=== PATIENT | female | born 1990 | race Caucasian/White ===

== ENCOUNTER 2017-11-04 03:26 | Inpatient (IN) | payer OTHER ==
[~2017-11-04] VITALS: Ht 162.6 cm; Wt 92.7 kg
[2017-11-04 03:42] VITALS: BP 119/69; PULSE 107; RESP 16; TEMP 98.5; O2SAT 99
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
[2017-11-04] MEDS ORDERED: TETANUS/DIPHTHERIA TOXOID ADULT 0.5 ML VIAL IM ONE (04:45)
[2017-11-04] MEDS ORDERED: LIDOCAINE 2%/EPINEPHrine 1:100,000 20ML MDV NERV BLOCK ONE (04:45)
[2017-11-04 04:46] LABS: AUTOMATED NEUTROPHIL # 9.6 TH/MM3 (1.8-7.7); BASOPHIL # 0.1 TH/MM3 (0-0.2); BASOPHIL % 0.5 % (0.0-2.0); EOSINOPHIL % 0.2 % (0.0-4.0); HEMATOCRIT 37.6 % (35.0-46.0); HEMOGLOBIN 12.6 GM/DL (11.6-15.3); LYMPH % 17.5 % (9.0-44.0); LYMPHOCYTE # 2.2 TH/MM3 (1.0-4.8); MEAN CORPUSCULAR HEMOGLOBIN 25.1 PG (27.0-34.0); MEAN CORPUSCULAR HGB CONC 33.5 % (32.0-36.0); MEAN PLATELET VOLUME 7.7 FL (7.0-11.0); MONO % 5.1 % (0.0-8.0); MONOCYTE # 0.6 TH/MM3 (0-0.9); NEUT % 76.7 % (16.0-70.0); PLATELET COUNT 404 TH/MM3 (150-450); RED BLOOD COUNT 5.01 MIL/MM3 (4.00-5.30); RED CELL DISTRIBUTION WIDTH 16.3 % (11.6-17.2); WHITE BLOOD COUNT 12.5 TH/MM3 (4.0-11.0)
[2017-11-04 05:15] LABS: ALBUMIN 3.8 GM/DL (3.4-5.0); AST (GOT) 13 U/L (15-37); BICARBONATE 25.6 MEQ/L (21.0-32.0); BLOOD UREA NITROGEN 10 MG/DL (7-18); CHLORIDE 104 MEQ/L (98-107); CREATININE 0.73 MG/DL (0.50-1.00); GLOMERULAR FILTRATION RATE 96 ML/MIN (>89); GLUCOSE,RANDOM 92 MG/DL (74-106); MAGNESIUM 2.1 MG/DL (1.5-2.5); SODIUM (NA) 138 MEQ/L (136-145)
[2017-11-04 05:16] LABS: ALT (GPT) 18 U/L (10-53)
[2017-11-04 05:25] LABS: ACETAMINOPHEN LESS THAN 2.0 MCG/ML (10.0-30.0); ALKALINE PHOSPHATASE 92 U/L (45-117); TOTAL BILIRUBIN ADULT 0.4 MG/DL (0.2-1.0); TOTAL PROTEIN 7.9 GM/DL (6.4-8.2); TROPONIN I LESS THAN 0.02 NG/ML (0.02-0.05)
[2017-11-04 10:56] VITALS: BP 106/58; PULSE 82; RESP 16; TEMP 98.7; O2SAT 97
--- NOTE | 2017-11-04 12:58 | EKG ---
Date Performed: 11/04/2017 Time Performed: 04:36:54 PTAGE: 27 years EKG: Sinus rhythm NORMAL ECG NO PREVIOUS TRACING DOCTOR: Timi Ospina Interpretating Date/Time 11/04/2017 12:58:20
[2017-11-04 18:43] VITALS: BP 115/68; PULSE 78; RESP 18; O2SAT 97
[2017-11-04 22:04] VITALS: BP 119/64; PULSE 90; RESP 18; TEMP 98.1; O2SAT 99
[2017-11-05 07:05] VITALS: BP 109/70; PULSE 73; RESP 17; TEMP 97.7; O2SAT 100
[2017-11-05 11:09] VITALS: BP 104/67; PULSE 66; RESP 18; O2SAT 98
[2017-11-05] MEDS ORDERED: LORazepam 2 MG/ML VIAL IM PRN (14:15)
[2017-11-05] MEDS ORDERED: MAGNESIUM HYDROXIDE SUSP 30 ML CUP PO PRN (14:15)
[2017-11-05] MEDS ORDERED: ACETAMINOPHEN 325 MG TAB PO PRN (14:15)
[2017-11-05] MEDS ORDERED: LORazepam 1 MG TAB PO PRN (14:15)
[2017-11-05] MEDS ORDERED: ALUMINUM/MAGNESIUM/SIMETH 30 ML CUP PO PRN (14:15)
[2017-11-05 18:24] VITALS: BP 122/55; PULSE 75; RESP 18; TEMP 97.1; O2SAT 100
[2017-11-05] MEDS: REMOVE OLD NICOTINE PATCH T-DERMAL SCH (21:00)
[2017-11-06 05:00] VITALS: BP 130/77; PULSE 81; RESP 19; TEMP 97.7; O2SAT 97
[2017-11-06 06:28] LABS: BICARBONATE 28.2 MEQ/L (21.0-32.0); BLOOD UREA NITROGEN 8 MG/DL (7-18); CALCIUM 9.2 MG/DL (8.5-10.1); CHLORIDE 103 MEQ/L (98-107); CREATININE 0.65 MG/DL (0.50-1.00); GLOMERULAR FILTRATION RATE 110 ML/MIN (>89); GLUCOSE,RANDOM 90 MG/DL (74-106); SODIUM (NA) 138 MEQ/L (136-145)
[2017-11-06 06:29] LABS: CHOLESTEROL 111 MG/DL (120-200)
[2017-11-06 06:39] LABS: CHOLESTEROL/ HDL RATIO 3.39 RATIO; HDL CHOLESTEROL 32.7 MG/DL (40.0-60.0); LDL CHOLESTEROL 64 MG/DL (0-99); TRIGLYCERIDES 72 MG/DL (42-150)
[2017-11-06] MEDS: NICOTINE 21 MG/24 HR PATCH T-DERMAL SCH (09:00)
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
[2017-11-06] MEDS ORDERED: LORazepam 2 MG/ML VIAL IV PUSH PRN ×4 (12:30)
[2017-11-06] MEDS ORDERED: LORazepam 2 MG TAB PO PRN (12:30)
[2017-11-06] MEDS ORDERED: LORazepam 1 MG TAB PO PRN (12:30)
[2017-11-06] MEDS ORDERED: FLUMAZENIL 0.5 MG/5 ML VIAL IV PUSH PRN (12:30)
[2017-11-06 15:48] LABS: HEMOGLOBIN A1C 5.2 % (4.3-6.0)
[2017-11-06 18:00] VITALS: BP 111/63; PULSE 85; RESP 16; TEMP 98.1; O2SAT 99
[2017-11-06] MEDS ORDERED: PILL SPLITTER OTHER PRN (18:15)
[2017-11-06] MEDS: REMOVE OLD NICOTINE PATCH T-DERMAL SCH (20:41)
[2017-11-06] MEDS: VENLAFAXINE HCL 25 MG TAB PO SCH (21:16)
[2017-11-07 06:00] VITALS: BP 118/77; PULSE 65; RESP 14; TEMP 97.9; O2SAT 98
[2017-11-07] MEDS: NICOTINE 21 MG/24 HR PATCH T-DERMAL SCH (09:00)
[2017-11-07] MEDS: VENLAFAXINE HCL 25 MG TAB PO SCH ×2 (09:53→20:34)
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
--- NOTE | 2017-11-07 11:56 | PD.PSY.CON ---
Provisional Diagnosis Admission Date Nov 05, 2017 at 13:35 [place] I. Major depressive disorder severe with psychotic features [place] II. Unspecified personality disorder History of Present Illness Service Psychiatry Consult Requested By Psychiatry Reason for Consult Second opinion Primary Care Physician Unknown HPI Patient is a 27-year-old woman, single, no children, domicile with mother, a college, with an unclear past psychiatric history, unknown previous hospitalizations, suicide attempts or self-injurious behavior, with substance use history significant for alcohol use as per collateral information, no significant past medical history, who was brought in under [place] act after patient barricaded herself in a hotel room bathroom, was found to have to written notes on suicidal table, which patient refused to exit the bathroom and was found holding a knife and was tased she was admitted to the inpatient psychiatry unit for further evaluation and management. As per chart patient in the ED was noted to refuse to cooperate with interview but was noted to have a self-inflicted knife wound to the left side of her neck requiring sutures. Patient was found lying on hospital bed superficially cooperative, guarded. Patient was noted to be alert and oriented 3, was able to state that she came by ambulance but also mentioned that patient came by court order, specifically an ex-partake that was issued. Significant past medical, psychiatric or substance use history patient continues to state "I don't know" and refusing to elaborate or engage further in interview. Patient did admit to feeling depressed, with decreased appetite and energy with no difficulty concentration but denied any perceptual disturbances or delusions at this time. Patient continued to have limited engagement in interview and answered every question with "I don't know". Family psychiatric history: Unable to assess due to limited cooperation by patient during interview Psychiatric history:Unable to assess due to limited cooperation by patient during interview Substance use history:Unable to assess due to limited cooperation by patient during interview although as per collateral information patient had been drinking increasingly alcohol recently. Past medical history:Unable to assess due to limited cooperation by patient during interview Allergies: NKDA as per chart Social history: Single, no children, not currently employed, the domicile with mother Collateral contact: (Mother)[phone] Patient was seen today for psychiatric evaluation of a second opinion. I reviewed documentation. I discussed the case with nurse in charge. The patient was not cooperative, selectively mute, she did not answer anyone of my questions. I reassured the patient and let her know very clearly that she is in the psychiatric unit to be taking care to be help and wants she feels that she wants to talk we are open to listening to her help her. Presently the patient has been taking her medications, she has no reported any side effects. She also has been eating, sometimes she has been verbal very minimally. Review of Systems Psychiatric: COMPLAINS OF: Mood changes, Depression, Suicidal Ideation Except as stated in HPI: all other systems reviewed are Neg Past Family Social History Coded Allergies: No Known Allergies (Verified Allergy, Severe, 11/04/17) No Active Prescriptions or Reported Meds Current Medications Medications (Trade) Dose Ordered Sig/Caesar Route Start Time Stop Time Status Last Admin (Ativan) 1 mg Q6H PRN PO 11/05/17 14:15 (Ativan Inj) 1 mg Q6H PRN IM 11/05/17 14:15 (Tylenol) 650 mg Q4H PRN PO 11/05/17 14:15 (Milk Of Magnesia Liq) 30 ml DAILY PRN PO 11/05/17 14:15 (Mag-Al Plus Susp Liq) 30 ml Q6H PRN PO 11/05/17 14:15 (Habitrol 21 Mg Patch.24 Hr) 1 patch DAILY T-DERMAL 11/06/17 09:00 Miscellaneous Information 1 HS T-DERMAL 11/05/17 21:00 (Romazicon Inj) 0.2 mg Q1M PRN IV PUSH 11/06/17 12:30 (Ativan) 1 mg Q4H PRN PO 11/06/17 12:30 (Ativan Inj) 1 mg Q4H PRN IV PUSH 11/06/17 12:30 (Ativan) 2 mg Q2H PRN PO 11/06/17 12:30 (Ativan Inj) 2 mg Q2H PRN IV PUSH 11/06/17 12:30 (Ativan Inj) 2 mg Q1H PRN IV PUSH 11/06/17 12:30 (Ativan Inj) 2 mg Q15M PRN IV PUSH 11/06/17 12:30 (Effexor) 37.5 mg BID PO 11/06/17 21:00 11/07/17 09:53 (Pill Splitter) 1 ea UNSCH PRN OTHER 11/06/17 18:15 Physical Exam Vital Signs Vital Signs Date Time Temp Pulse Resp B/P (MAP) Pulse Ox O2 Delivery O2 Flow Rate FiO2 11/07/17 06:00 97.9 65 14 118/77 (91) 98 11/05/17 11:09 Room Air I/O 11/07/17 11/07/17 11/08/17 08:00 16:00 00:00 Intake Total 240 ml Balance 240 ml Mental Status Examination Appearance: Disheveled Consciousness: Alert Orientation: Person, Place, Date/Time Motor Activity: Normal gait Speech: Other (selectively mute) Language: Adequate Fund of Knowledge: Inadequate Memory: Impaired Mood: Sad Affect: Flat Thought Process & Associations: Other Thought Content: Other (concrete and unable to assess due to limitation of participation for patient) Hallucination Type: None Delusion Type: None Suicidal Ideation: Yes Suicidal Plan: Yes Suicidal Intention: Yes Homicidal Ideation: No Homicidal Plan: No Homicidal Intention: No Insight: Poor Judgment: Poor Assessment & Plan Problem List: (1) Major depressive disorder, recurrent, severe with psychotic features ICD Codes: F33.3 - Major depressive disorder, recurrent, severe with psychotic symptoms Assessment & Plan: I have seen and examined this patient. Reviewed documentation. I agree and concur with Dr. Berger assessment and plan. Assessment & Plan Estimated LOS: Abhay Tucker MD Nov 07, 2017 11:56
[2017-11-07 18:23] VITALS: BP 126/82; PULSE 82; RESP 16; TEMP 98.4; O2SAT 95
[2017-11-07] MEDS: REMOVE OLD NICOTINE PATCH T-DERMAL SCH (20:36)
[2017-11-08 06:08] VITALS: BP 116/63; PULSE 79; RESP 18; TEMP 98.4; O2SAT 98
[2017-11-08] MEDS: VENLAFAXINE HCL 25 MG TAB PO SCH ×3 (09:00→22:04)
[2017-11-08] MEDS: NICOTINE 21 MG/24 HR PATCH T-DERMAL SCH (09:00)
--- NOTE | 2017-11-08 13:13 | HHI.PR ---
Subjective Remarks Still sleeping and not communicating at all. Flat affect. Staring. Objective Vitals Vital Signs Date Time Temp Pulse Resp B/P (MAP) Pulse Ox O2 Delivery O2 Flow Rate FiO2 11/08/17 06:08 98.4 79 18 116/63 (80) 98 11/07/17 18:23 98.4 82 16 126/82 (97) 95 I/O 11/07/17 11/07/17 11/07/17 11/08/17 11/08/17 11/08/17 07:00 15:00 23:00 07:00 15:00 23:00 Intake Total 240 ml 240 ml 240 ml Balance 240 ml 240 ml 240 ml Intake Oral 240 ml 240 ml 240 ml # Voids 2 Result Diagram: 11/04/17 0436 11/06/17 0543 Objective Remarks Awake. Noncommunicative. Staring into space. Flat affect. Anhedonic. Lungs sounds are regular, no murmur appreciated. Small sutures on her chest and neck from superficial self-inflicted wound injury. Heart rate is regular, no murmur appreciated. Abdomen is soft and nontender. Lower extremities did not reveal any calf asymmetry or edema. A/P Assessment and Plan Impression: Major depression Suicidal attempt with 3 hours stand off with police SWAT team prior to psychiatry admission Low normal TSH Plan: Free T4 mildly elevated. Total T3 normal. TSH normal. I would not start patient on medications as her clinical symptoms are more of a flat affect, severe depression, obesity, pointing towards hypothyroid state rather than hyper. Extremely difficult to obtain her symptoms from her since she is not given any further history. We will sign off on her case at this point. Patient would need encouragement with by mouth intake. Please reconsult when necessary if there is any acute medical issues Discharge Planning per psychiatry Tommie Guan MD Nov 08, 2017 13:13
[2017-11-08 14:41] LABS: AUTOMATED NEUTROPHIL # 9.9 TH/MM3 (1.8-7.7); BASOPHIL # 0.1 TH/MM3 (0-0.2); BASOPHIL % 0.4 % (0.0-2.0); EOSINOPHIL # 0.2 TH/MM3 (0-0.4); EOSINOPHIL % 1.7 % (0.0-4.0); HEMATOCRIT 39.1 % (35.0-46.0); HEMOGLOBIN 12.8 GM/DL (11.6-15.3); LYMPH % 19.5 % (9.0-44.0); LYMPHOCYTE # 2.6 TH/MM3 (1.0-4.8); MEAN CELL VOLUME 75.5 FL (80.0-100.0); MEAN CORPUSCULAR HEMOGLOBIN 24.8 PG (27.0-34.0); MEAN CORPUSCULAR HGB CONC 32.8 % (32.0-36.0); MEAN PLATELET VOLUME 8.2 FL (7.0-11.0); MONO % 5.3 % (0.0-8.0); MONOCYTE # 0.7 TH/MM3 (0-0.9); NEUT % 73.1 % (16.0-70.0); PLATELET COUNT 398 TH/MM3 (150-450); RED BLOOD COUNT 5.17 MIL/MM3 (4.00-5.30); RED CELL DISTRIBUTION WIDTH 16.6 % (11.6-17.2); WHITE BLOOD COUNT 13.6 TH/MM3 (4.0-11.0)
--- NOTE | 2017-11-08 15:00 | HHI.PYPN ---
Subjective Remarks Patient seen for follow-up, chart reviewed. Discussion nursing staff reported the patient was able to sleep last night has had inconsistent nutritional intake since admission and continues to be noncommunicative with staff but is compliant with medications. Patient was found lying in hospital bed with one-to -one sitter at bedside noted to be awake but refusing to interact with interview with job specification writer today. Patient had not is spoken to anyone this morning, was encouraged to participate in meals but had refused to continue to lay in bed. Patient was able to maintain some eye contact during interview but did not respond verbally to questioning. She was encouraged to participate in meals hydration as patient was counseled on the possibility of dehydration requiring IV fluids for the same. Review of Systems Except as stated in HPI: all other systems reviewed are Neg Mental Status Examination Appearance: Disheveled Consciousness: Alert Orientation: Person, Place, Date/Time Motor Activity: Normal gait Speech: Other (selectively mute) Language: Adequate Fund of Knowledge: Inadequate Memory: Impaired Mood: Sad Affect: Flat Thought Process & Associations: Other (refused to interact during interview) Thought Content: Other (concrete and unable to assess due to limitation of participation for patient) Hallucination Type: None Delusion Type: None Suicidal Ideation: Yes Suicidal Plan: Yes Suicidal Intention: Yes Homicidal Ideation: No Homicidal Plan: No Homicidal Intention: No Insight: Poor Judgment: Poor Results Labs Labs reviewed Test 11/08/17 13:58 White Blood Count 13.6 TH/MM3 Red Blood Count 5.17 MIL/MM3 Hemoglobin 12.8 GM/DL Hematocrit 39.1 % Mean Corpuscular Volume 75.5 FL Mean Corpuscular Hemoglobin 24.8 PG Mean Corpuscular Hemoglobin Concent 32.8 % Red Cell Distribution Width 16.6 % Platelet Count 398 TH/MM3 Mean Platelet Volume 8.2 FL Neutrophils (%) (Auto) 73.1 % Lymphocytes (%) (Auto) 19.5 % Monocytes (%) (Auto) 5.3 % Eosinophils (%) (Auto) 1.7 % Basophils (%) (Auto) 0.4 % Neutrophils # (Auto) 9.9 TH/MM3 Lymphocytes # (Auto) 2.6 TH/MM3 Monocytes # (Auto) 0.7 TH/MM3 Eosinophils # (Auto) 0.2 TH/MM3 Basophils # (Auto) 0.1 TH/MM3 CBC Comment DIFF FINAL Differential Comment Vitals/IOs Vital Signs Date Time Temp Pulse Resp B/P (MAP) Pulse Ox O2 Delivery O2 Flow Rate FiO2 11/08/17 06:08 98.4 79 18 116/63 (80) 98 11/05/17 11:09 Room Air Assessment & Plan Problem List: (1) Major depressive disorder, recurrent, severe with psychotic features ICD Codes: F33.3 - Major depressive disorder, recurrent, severe with psychotic symptoms Assessment & Plan Estimated LOS: 5-7days. Patient at this time continues to have flat affect, no interaction with staff, with inconsistent intake of meals and fluids. We'll increase Effexor or to 75 mg by mouth twice a day for depression. Continue to monitor mood and behavior. Continue to encourage patient to increase by mouth intake of fluids and food. Continue to encourage patient to participate in groups and activities and maintain personal hygiene. Continue recommendations as per primary medical team. Discharge planning in progress Justification for Cont. Inpt. At risk for further decompensation at lower level of care Discharge Planning Back to her residence when psychiatrically stable. Nuno Berger MD Nov 08, 2017 15:00
--- NOTE | 2017-11-08 15:56 | PD.TTN ---
Patient Problems 1. Discharge planning 2. Medication compliance 3. Knowledge deficit 4. Lack of coping skills Progress Toward Goals Provider Present: Dr. Meghann Berger Provider Input: 11/08/17 majorly depressed and currently not eating, is on 2600 now and if in need for infusions she may need return to the 4th floor, she is in need for some medication adjustment and time to respond them Psychiatric Counselors Present: Lyudmila Velasquez LCSW Psych Therapist Input: 11/08/17 unstable, needs stablization, no talking, remains mute, withdrawn, still on a 1:1 and not engaging , no eye contact Group Spec/RT/OT/GUAMAN Present: Kade Fu OT Group Spec/RT/OT/GUAMAN Input: 11/08/17 does not attend any groups Lyudmila Velasquez LCSW Nov 08, 2017 15:56
[2017-11-08] MEDS: FREE WATER PO SCH ×2 (16:00→20:00)
[2017-11-08] MEDS: REMOVE OLD NICOTINE PATCH T-DERMAL SCH (21:00)
[2017-11-09] MEDS: FREE WATER PO SCH ×6 (04:00→20:00)
[2017-11-09 06:32] VITALS: BP 114/63; PULSE 67; RESP 16; TEMP 98; O2SAT 95
[2017-11-09] MEDS: NICOTINE 21 MG/24 HR PATCH T-DERMAL SCH (09:00)
[2017-11-09] MEDS: VENLAFAXINE HCL 25 MG TAB PO SCH ×2 (09:56→21:00)
[2017-11-09] MEDS: ENOXAPARIN SODIUM 40 MG/0.4 ML SYRINGE SQ SCH (13:00)
[2017-11-09 17:25] VITALS: BP 99/54; PULSE 88; RESP 18; TEMP 98.1; O2SAT 98
--- NOTE | 2017-11-09 17:26 | HHI.PYPN ---
Subjective Remarks Patient seen for follow-up, chart reviewed. Discussion with nursing staff reported that the patient showered today, spend some time in day room, continues to have poor nutritional intake. Patient was taken to mental health court which supreme court judge had ruled involuntary hospitalization. Patient was later seen lying in hospital bed, nonverbal but noted to be alert, refusing to engage in interview. Sitter at bedside attested that the patient did eat her lunch today, showered today. Review of Systems Except as stated in HPI: all other systems reviewed are Neg Mental Status Examination Appearance: Disheveled Consciousness: Alert Orientation: Person, Place, Date/Time Motor Activity: Normal gait Speech: Other (selectively mute) Language: Adequate Fund of Knowledge: Inadequate Memory: Impaired Mood: Sad Affect: Flat Thought Process & Associations: Other (refused to interact during interview) Thought Content: Other (concrete and unable to assess due to limitation of participation for patient) Hallucination Type: None Delusion Type: None Suicidal Ideation: Yes Suicidal Plan: No Suicidal Intention: No Homicidal Ideation: No Homicidal Plan: No Homicidal Intention: No Insight: Poor Judgment: Poor Results Vitals/IOs Vital Signs Date Time Temp Pulse Resp B/P (MAP) Pulse Ox O2 Delivery O2 Flow Rate FiO2 11/09/17 17:25 98.1 88 18 99/54 (69) 98 11/05/17 11:09 Room Air Assessment & Plan Problem List: (1) Major depressive disorder, recurrent, severe with psychotic features ICD Codes: F33.3 - Major depressive disorder, recurrent, severe with psychotic symptoms Assessment & Plan Patient continues to have minimal participation when staff attempts to engage patient in conversation. She has had some improvement in PO intake, has been compliant with treatment but continues to require much encouragement for meals, hygiene, and getting out of bed. Continue current treatment. Continue to monitor mood and behavior. Discharge planning in progress. Justification for Cont. Inpt. At risk for further decompensation if at lower level of care. Discharge Planning Return to her residence once psychiatrically stable. Nuno Berger MD Nov 09, 2017 17:26
[2017-11-09] MEDS: REMOVE OLD NICOTINE PATCH T-DERMAL SCH (21:00)
[2017-11-10] MEDS: FREE WATER PO SCH ×6 (04:00→20:00)
[2017-11-10 05:50] VITALS: BP 114/72; PULSE 65; RESP 16; TEMP 98.1; O2SAT 98
[2017-11-10] MEDS: NICOTINE 21 MG/24 HR PATCH T-DERMAL SCH (09:00)
[2017-11-10] MEDS: ENOXAPARIN SODIUM 40 MG/0.4 ML SYRINGE SQ SCH (09:00)
[2017-11-10] MEDS: VENLAFAXINE HCL 25 MG TAB PO SCH ×2 (11:00→21:14)
--- NOTE | 2017-11-10 15:44 | HHI.PYPN ---
Subjective Remarks Patient is here for follow, chart reviewed. Discussion nursing staff reported the patient continues to be mostly in bed with poor participation in meals as well as in groups and activities. Patient continues to have poor interactions with staff. Patient was found lying in hospital bed was able to open her eyes and I knowledge that display card writer was there. Patient refused to interact verbally with interview despite multiple attempts. Report from sitter reported the patient did not eat breakfast this morning and had been lying in bed all day. Review of Systems Except as stated in HPI: all other systems reviewed are Neg Mental Status Examination Appearance: Disheveled Consciousness: Alert Orientation: Person, Place, Date/Time Motor Activity: Normal gait Speech: Other (selectively mute) Language: Adequate Fund of Knowledge: Inadequate Memory: Impaired Mood: Sad Affect: Flat Thought Process & Associations: Other (refused to interact during interview) Thought Content: Other (concrete and unable to assess due to limitation of participation for patient) Hallucination Type: None Delusion Type: None Suicidal Ideation: Yes Suicidal Plan: No Suicidal Intention: No Homicidal Ideation: No Homicidal Plan: No Homicidal Intention: No Insight: Poor Judgment: Poor Results Vitals/IOs Vital Signs Date Time Temp Pulse Resp B/P (MAP) Pulse Ox O2 Delivery O2 Flow Rate FiO2 11/10/17 05:50 98.1 65 16 114/72 (86) 98 Assessment & Plan Problem List: (1) Major depressive disorder, recurrent, severe with psychotic features ICD Codes: F33.3 - Major depressive disorder, recurrent, severe with psychotic symptoms Assessment & Plan Patient at this time continues to be noted to be depressed with psychomotor retardation, nonverbal and selectively mute. Continue to get patient out of bed and into the common area as well as continue to encourage patient to increase p.o. fluid and nutritional intake. Dietary consult pending. We will Effexor at current dose as patient missed dose last evening but with upper titration if continues with limited response. Continue to monitor mood and behavior. Continue one-to-one observation for safety. Continue recommendations as per prior medical team. Continue to encourage patient to participate in groups and activities. Discharge planning in progress Justification for Cont. Inpt. At risk for further decompensation if at lower level of care Discharge Planning Patient to return back to her residence when psychiatrically stable. Nuno Berger MD Nov 10, 2017 15:44
[2017-11-10] MEDS: REMOVE OLD NICOTINE PATCH T-DERMAL SCH (21:00)
[2017-11-11] MEDS: FREE WATER PO SCH ×6 (04:00→20:00)
[2017-11-11 05:54] VITALS: BP 129/77; PULSE 60; RESP 16; TEMP 97.7; O2SAT 99
[2017-11-11] MEDS: NICOTINE 21 MG/24 HR PATCH T-DERMAL SCH (09:00)
[2017-11-11] MEDS: VENLAFAXINE HCL 25 MG TAB PO SCH ×2 (09:49→20:26)
[2017-11-11] MEDS: ENOXAPARIN SODIUM 40 MG/0.4 ML SYRINGE SQ SCH (09:53)
[2017-11-11 18:00] VITALS: BP 133/72; PULSE 64; RESP 18; TEMP 97.6; O2SAT 99
[2017-11-11] MEDS: REMOVE OLD NICOTINE PATCH T-DERMAL SCH (20:26)
--- NOTE | 2017-11-11 21:49 | HHI.PYPN ---
Subjective Remarks Pt seen and discussed with staff. Staff report that she remains selectively mute and withdrawn. Staff report that pt continues to refuse meals and is consuming fluids only at medication pass. Staff report that pt will sit up and take medications but otherwise is uncooperative. Upon interview, she responds to voice but quickly turns away from MD and does not answer questions or engage. She appears to be responding to internal stimuli. She remains on 1:1 Mental Status Examination Appearance: Disheveled Consciousness: Alert Orientation: Person, Place, Date/Time Motor Activity: Normal gait Speech: Other (selectively mute) Language: Adequate Fund of Knowledge: Inadequate Memory: Impaired Mood: Sad Affect: Flat Thought Process & Associations: Other (refused to interact during interview) Thought Content: Other (concrete and unable to assess due to limitation of participation for patient) Hallucination Type: None Delusion Type: None Suicidal Ideation: Yes Suicidal Plan: No Suicidal Intention: No Homicidal Ideation: No Homicidal Plan: No Homicidal Intention: No Insight: Poor Judgment: Poor Results Labs Test 11/11/17 18:46 Beta HCG, Qualitative LESS THAN 1 MIU/ML Vitals/IOs Vital Signs Date Time Temp Pulse Resp B/P (MAP) Pulse Ox O2 Delivery O2 Flow Rate FiO2 11/11/17 18:00 97.6 64 18 133/72 (92) 99 Assessment & Plan Problem List: (1) Major depressive disorder, recurrent, severe with psychotic features ICD Codes: F33.3 - Major depressive disorder, recurrent, severe with psychotic symptoms Assessment & Plan Continue to encourage po intake. Consult medicine to assess for dehydration. Pt may need transfer to med psych unit if continues to refuse po intake. RN reports pt's mother stated that police report indicated that pt hit head when tasered prior to admission. Will order head CT and consult hospitalist. Estimated LOS: days Justification for Cont. Inpt. impairments in reality testing. Fatimah Foote MD Nov 11, 2017 21:49
--- NOTE | 2017-11-12 00:38 | RADRPT ---
EXAM DATE/TIME: 11/12/2017 00:12 [facility] COMPARISON: No previous studies available for comparison. INDICATIONS : Trauma; fall. RADIATION DOSE: 35.65 CTDIvol (mGy) MEDICAL HISTORY : None SURGICAL HISTORY : None. ENCOUNTER: Initial ACUITY: 1 day PAIN SCALE: 5/10 LOCATION: cranial TECHNIQUE: Multiple contiguous axial images were obtained of the head. Using automated exposure control and adj ustment of the mA and/or kV according to patient size, radiation dose was kept as low as reasonably a chievable to obtain optimal diagnostic quality images. DICOM format image data is available electro nically for review and comparison. FINDINGS: CEREBRUM: The ventricles are normal for age. No evidence of midline shift, mass lesion, hemorrhage or acute in farction. No extra-axial fluid collections are seen. POSTERIOR FOSSA: The cerebellum and brainstem are intact. The 4th ventricle is midline. The cerebellopontine angle i s unremarkable. EXTRACRANIAL: The visualized portion of the orbits is intact. SKULL: The calvaria is intact. No evidence of skull fracture. CONCLUSION: 1. No acute intracranial abnormalities. Elmer Huff MD on November 12, 2017 at 0:34 Board Certified Radiologist. This report was verified electronically.
[2017-11-12] MEDS: FREE WATER PO SCH ×6 (04:00→21:00)
[2017-11-12 05:38] VITALS: BP 101/63; PULSE 70; RESP 16; TEMP 97.9; O2SAT 98
[2017-11-12] MEDS: ENOXAPARIN SODIUM 40 MG/0.4 ML SYRINGE SQ SCH (08:32)
[2017-11-12] MEDS: VENLAFAXINE HCL 25 MG TAB PO SCH ×2 (08:32→22:04)
[2017-11-12] MEDS: NICOTINE 21 MG/24 HR PATCH T-DERMAL SCH (08:33)
--- NOTE | 2017-11-12 13:52 | HHI.PYPN ---
Subjective Remarks Pt seen and discussed with staff. CT Brain negative. Pt still refuses food, but has been drinking water and ensure today. She will ambulate to bathroom but will not come out of room. Staff brought her out of room today in wheelchair because she refused to walk. She remains selectively mute. She cooperates with labs, vitals and medications and follows directions but otherwise does not engage. She responds to name but will not engage in interview. Mental Status Examination Appearance: Disheveled Consciousness: Alert Orientation: Person, Place, Date/Time Motor Activity: Normal gait Speech: Other (selectively mute) Language: Adequate Fund of Knowledge: Inadequate Memory: Impaired Mood: Other (depressed) Affect: Flat Thought Process & Associations: Other (refused to interact during interview) Thought Content: Other (concrete and unable to assess due to limitation of participation for patient) Hallucination Type: Other (appears internally stimulated) Delusion Type: Other (unable to assess) Suicidal Ideation: Yes Suicidal Plan: No Suicidal Intention: No Homicidal Ideation: No Homicidal Plan: No Homicidal Intention: No Insight: Poor Judgment: Poor Results Labs Test 11/11/17 18:46 11/12/17 13:00 Beta HCG, Qualitative LESS THAN 1 MIU/ML Vitals/IOs Vital Signs Date Time Temp Pulse Resp B/P (MAP) Pulse Ox O2 Delivery O2 Flow Rate FiO2 11/12/17 05:38 97.9 70 16 101/63 (76) 98 Intake and Output 11/12/17 11/12/17 11/13/17 08:00 16:00 00:00 Intake Total 0 ml 120 ml Balance 0 ml 120 ml Assessment & Plan Problem List: (1) Major depressive disorder, recurrent, severe with psychotic features ICD Codes: F33.3 - Major depressive disorder, recurrent, severe with psychotic symptoms Assessment & Plan Continue current tx plan. Estimated LOS: days Justification for Cont. Inpt. impairments in self care and reality testing Fatimah Foote MD Nov 12, 2017 13:52
[2017-11-12 13:55] LABS: CALCIUM 9.6 MG/DL (8.5-10.1); CREATININE 0.63 MG/DL (0.50-1.00)
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
[2017-11-12] MEDS ORDERED: POTASSIUM CHLORIDE 20 MEQ CONTROLLED RELEASE TAB PO ONE (15:00)
[2017-11-12 18:44] VITALS: BP 111/72; PULSE 74; RESP 16; TEMP 98.1; O2SAT 99
[2017-11-12] MEDS: REMOVE OLD NICOTINE PATCH T-DERMAL SCH (21:00)
[2017-11-13] MEDS: FREE WATER PO SCH ×6 (04:00→20:00)
[2017-11-13 06:23] VITALS: BP 105/61; PULSE 73; RESP 16; TEMP 98; O2SAT 95
[2017-11-13] MEDS ORDERED: POTASSIUM CHLORIDE 10 MEQ CONTROLLED RELEASE TAB PO ONE (09:30)
[2017-11-13] MEDS: VENLAFAXINE HCL 25 MG TAB PO SCH (09:59)
[2017-11-13] MEDS: ENOXAPARIN SODIUM 40 MG/0.4 ML SYRINGE SQ SCH (10:00)
[2017-11-13] MEDS: NICOTINE 21 MG/24 HR PATCH T-DERMAL SCH (10:00)
[2017-11-13 10:14] LABS: HEMATOCRIT 36.6 % (35.0-46.0); HEMOGLOBIN 12.3 GM/DL (11.6-15.3); MEAN CELL VOLUME 75.7 FL (80.0-100.0); MEAN CORPUSCULAR HEMOGLOBIN 25.5 PG (27.0-34.0); MEAN CORPUSCULAR HGB CONC 33.7 % (32.0-36.0); MEAN PLATELET VOLUME 8.4 FL (7.0-11.0); PLATELET COUNT 400 TH/MM3 (150-450); RED BLOOD COUNT 4.83 MIL/MM3 (4.00-5.30); RED CELL DISTRIBUTION WIDTH 16.5 % (11.6-17.2); WHITE BLOOD COUNT 8.4 TH/MM3 (4.0-11.0)
--- NOTE | 2017-11-13 10:33 | PD.TTN ---
Patient Problems 1. Discharge planning 2. Medication compliance 3. Knowledge deficit 4. Lack of coping skills Progress Toward Goals Provider Present: Dr. Meghann Berger Provider Input: 11/08/17 majorly depressed and currently not eating, is on 2600 now and if in need for infusions she may need return to the 4th floor, she is in need for some medication adjustment and time to respond them 11/13/17 Patient is medication complaint. Medication will be added. Patient is selectively mute, depressed. Nurse(s) Input: 11/13/17 Patient's nurse reports seclusive, affect flat. Patient presents disheveled, mute, depressed. Is not eating, lying in bed. Psychiatric Counselors Present: Lyudmila Velasquez LCSW Psych Therapist Input: 11/08/17 unstable, needs stablization, no talking, remains mute, withdrawn, still on a 1:1 and not engaging , no eye contact 11/13/17 Patient found lying in her bed with a 1:1. Patient is mute making poor eye contact. Patient has not eaten since yesterday and refused her breakfast this morning. Patient presents depressed, mute, non compliant with medication. Group Spec/RT/OT/GUAMAN Present: Kade Fu OT Group Spec/RT/OT/GUAMAN Input: 11/08/17 does not attend any groups 11/13/17 Patient is seclusive and does not attend any groups. Gerogette Winter [facility] Nov 13, 2017 10:33
[2017-11-13 10:39] LABS: BICARBONATE 27.2 MEQ/L (21.0-32.0); CALCIUM 9.1 MG/DL (8.5-10.1); CREATININE 0.59 MG/DL (0.50-1.00)
[2017-11-13 10:48] LABS: FREE T3 2.76 PG/ML (2.18-3.98); THYROXINE (T4) 12.4 MCG/DL (4.8-13.9)
--- NOTE | 2017-11-13 17:05 | HHI.PYPN ---
Subjective Remarks Patient seen for follow, chart reviewed. Discussion nursing staff reported the patient continues to refuse cooperation with staff, participating meals, shower , or be out of bed. Patient was found lying in hospital bed was a blow to respond to her name noted to be alert during interview of the patient continues to be selectively mute but was noted to be paying attention to conversation tech writer was having with her. Discussion with sitter reported the patient did not eat breakfast this morning but has been noted to be drinking fluids refusing to come out of the room. Discussion with the plan of adjusting medications and maximizing the options prior to consideration for ECT if patient continues to not respond to treatment. Review of Systems Except as stated in HPI: all other systems reviewed are Neg Mental Status Examination Appearance: Disheveled, Malodorous Consciousness: Alert Orientation: Person, Place, Date/Time Motor Activity: Normal gait Speech: Other (selectively mute) Language: Adequate Fund of Knowledge: Inadequate Memory: Impaired Mood: Other (depressed) Affect: Flat Thought Process & Associations: Other (refused to interact during interview) Thought Content: Other (concrete and unable to assess due to limitation of participation for patient) Hallucination Type: Other (appears internally stimulated) Delusion Type: Other (unable to assess) Suicidal Ideation: Yes Suicidal Plan: No Suicidal Intention: No Homicidal Ideation: No Homicidal Plan: No Homicidal Intention: No Insight: Poor Judgment: Poor Results Labs Labs reviewed Test 11/13/17 09:45 White Blood Count 8.4 TH/MM3 Red Blood Count 4.83 MIL/MM3 Hemoglobin 12.3 GM/DL Hematocrit 36.6 % Mean Corpuscular Volume 75.7 FL Mean Corpuscular Hemoglobin 25.5 PG Mean Corpuscular Hemoglobin Concent 33.7 % Red Cell Distribution Width 16.5 % Platelet Count 400 TH/MM3 Mean Platelet Volume 8.4 FL Blood Urea Nitrogen 11 MG/DL Creatinine 0.59 MG/DL Random Glucose 80 MG/DL Calcium Level 9.1 MG/DL Sodium Level 140 MEQ/L Potassium Level 3.5 MEQ/L Chloride Level 105 MEQ/L Carbon Dioxide Level 27.2 MEQ/L Anion Gap 8 MEQ/L Estimat Glomerular Filtration Rate 123 ML/MIN Thyroxine (T4) 12.4 MCG/DL Free Triiodothyronine (T3) pg/dL 2.76 PG/ML Thyroid Stimulating Hormone 3rd Gen 0.021 uIU/ML Vitals/IOs Vital Signs Date Time Temp Pulse Resp B/P (MAP) Pulse Ox O2 Delivery O2 Flow Rate FiO2 11/13/17 06:23 98.0 73 16 105/61 (76) 95 Intake and Output 11/13/17 11/13/17 11/14/17 08:00 16:00 00:00 Intake Total 400 ml 480 ml Output Total 0 ml Balance 400 ml 480 ml Assessment & Plan Problem List: (1) Major depressive disorder, recurrent, severe with psychotic features ICD Codes: F33.3 - Major depressive disorder, recurrent, severe with psychotic symptoms Assessment & Plan Patient continues to be selectively mute and participating minimally and ADLs although noted to be hydrating in bed. Patient continues on one-to-one observation. We will increase Effexor to 150 mg a.m./75 mg at bedtime. We will continue to maximize medication and if continues with unresponsive to treatment will consider adding adjunct. Continue to encourage patient to maintain personal hygiene. Continue to have patient out of bed for meals as well as visitations and assistance with showering. Continue to monitor mood and behavior. Discharge planning in progress Justification for Cont. Inpt. At risk for further decompensation at lower level of care Nuno Berger MD Nov 13, 2017 17:05
[2017-11-13 17:14] VITALS: BP 113/62; PULSE 93; RESP 18; TEMP 97.7; O2SAT 98
[2017-11-13] MEDS: REMOVE OLD NICOTINE PATCH T-DERMAL SCH (21:00)
[2017-11-13] MEDS ORDERED: VENLAFAXINE HCL 25 MG TAB PO SCH (21:00)
[2017-11-14] MEDS: FREE WATER PO SCH ×6 (04:00→20:53)
[2017-11-14 05:34] VITALS: BP 115/73; PULSE 67; RESP 16; TEMP 97.7; O2SAT 98
[2017-11-14 05:52] VITALS: BP 115/73; PULSE 68; RESP 16; TEMP 97.9
[2017-11-14] MEDS: NICOTINE 21 MG/24 HR PATCH T-DERMAL SCH (09:00)
[2017-11-14] MEDS: VENLAFAXINE HCL XR 75 MG CAP PO SCH (09:00)
[2017-11-14] MEDS: ENOXAPARIN SODIUM 40 MG/0.4 ML SYRINGE SQ SCH (09:00)
[2017-11-14] MEDS ORDERED: VENLAFAXINE HCL 25 MG TAB PO SCH (09:00)
--- NOTE | 2017-11-14 14:58 | HHI.PYPN ---
Subjective Remarks Patient is here for follow, chart reviewed. Discussion nursing staff reported the patient this morning when taking out of room and allowed back in repeatedly removed herself from the wheelchair and sat on the floor. Patient continued to be uncooperative and noncommunicative with staff. Patient was found sitting in the hallway today with also noncommunicating selectively mute with law writer today. Patient refused medications as well as breakfast this morning. Patient was put in a geriatric chair who brought to the day room where she then was noted to be resistant to having tray placed in front of her. Patient later stood up and grabbed her lunch tray and headed to her room where she ate lunch and laid back in bed. Patient refused lab work this morning as well. Review of Systems Except as stated in HPI: all other systems reviewed are Neg Mental Status Examination Appearance: Disheveled, Malodorous Consciousness: Alert Orientation: Person, Place, Date/Time Motor Activity: Normal gait Speech: Other (selectively mute) Language: Adequate Fund of Knowledge: Inadequate Memory: Impaired Mood: Oppositional Affect: Irritable Thought Process & Associations: Other (refused to interact during interview) Thought Content: Other (concrete and unable to assess due to limitation of participation for patient) Hallucination Type: Other (appears internally stimulated) Delusion Type: Other (unable to assess) Suicidal Ideation: Yes Suicidal Plan: No Suicidal Intention: No Homicidal Ideation: No Homicidal Plan: No Homicidal Intention: No Insight: Poor Judgment: Poor Results Vitals/IOs Vital Signs Date Time Temp Pulse Resp B/P (MAP) Pulse Ox O2 Delivery O2 Flow Rate FiO2 11/14/17 05:52 97.9 68 16 115/73 (87) 11/14/17 05:34 98 Intake and Output 11/14/17 11/14/17 11/15/17 08:00 16:00 00:00 Intake Total 240 ml Balance 240 ml Assessment & Plan Problem List: (1) Major depressive disorder, recurrent, severe with psychotic features ICD Codes: F33.3 - Major depressive disorder, recurrent, severe with psychotic symptoms Assessment & Plan Patient continues to be oppositional with cooperation with staff, continues to refuse intervention or interaction. Patient has been compliant with medications up to today when patient was not allowed to return back to her bed to sleep and refused lab work along with treatment. There is likely behavioral component coupled with her current state of depression. We will continue current treatment as patient refused also this morning we will consider adding adjunct. Continue to have patient on of her room for meals as well as for visitations. Continue to encourage patient to be compliant with treatment as well as with care interventions. Patient continues to refuse lab work we will consider having patient on temporary hold to require blood draw after consent for patient's healthcare surrogate. Monitor with behavior. Continue to encourage patient to participate in groups and activities as well as increased p.o. intake. Discharge planning in progress Justification for Cont. Inpt. At risk for further decompensation if at lower level of care Nuno Berger MD Nov 14, 2017 14:58
[2017-11-14 18:36] VITALS: BP 152/85; PULSE 85; RESP 16; TEMP 98; O2SAT 97
[2017-11-14] MEDS: REMOVE OLD NICOTINE PATCH T-DERMAL SCH (20:53)
[2017-11-15] MEDS: FREE WATER PO SCH ×6 (00:18→20:00)
[2017-11-15 06:00] VITALS: BP 91/56; PULSE 71; RESP 17; TEMP 97.9; O2SAT 97
[2017-11-15 08:22] LABS: BICARBONATE 27.3 MEQ/L (21.0-32.0); CALCIUM 8.8 MG/DL (8.5-10.1); CREATININE 0.56 MG/DL (0.50-1.00)
[2017-11-15] MEDS: ENOXAPARIN SODIUM 40 MG/0.4 ML SYRINGE SQ SCH (08:36)
[2017-11-15] MEDS: VENLAFAXINE HCL XR 75 MG CAP PO SCH (08:36)
[2017-11-15] MEDS: NICOTINE 21 MG/24 HR PATCH T-DERMAL SCH (08:39)
--- NOTE | 2017-11-15 14:01 | HHI.PYPN ---
Subjective Remarks Patient seen for follow-up, chart reviewed. Discussion with the staff reported the patient continues to lie in bed and cooperative and unwilling to participate in meals or activities. Patient continued to be selectively mute comply to interact with staff, compliant with treatment at this time. Patient was found lying in hospital bed disheveled and showered once since admission with much encouragement. Patient continued to be secondary newt unwilling to interact and engage in interview today. Patient was taken to dayroom Tasneem chair for behavioral activation to participate in meals but refused and walked back and sat in the hallway. Review of Systems Except as stated in HPI: all other systems reviewed are Neg Mental Status Examination Appearance: Disheveled, Malodorous Consciousness: Alert Orientation: Person, Place, Date/Time Motor Activity: Normal gait Speech: Other (selectively mute) Language: Adequate Fund of Knowledge: Inadequate Memory: Impaired Mood: Oppositional Affect: Irritable Thought Process & Associations: Other (refused to interact during interview) Thought Content: Other (concrete and unable to assess due to limitation of participation for patient) Hallucination Type: Other (appears internally stimulated) Delusion Type: Other (unable to assess) Suicidal Ideation: Yes Suicidal Plan: No Suicidal Intention: No Homicidal Ideation: No Homicidal Plan: No Homicidal Intention: No Insight: Poor Judgment: Poor Results Labs Labs reviewed Test 11/15/17 06:19 Blood Urea Nitrogen 8 MG/DL Creatinine 0.56 MG/DL Random Glucose 81 MG/DL Calcium Level 8.8 MG/DL Sodium Level 139 MEQ/L Potassium Level 3.4 MEQ/L Chloride Level 105 MEQ/L Carbon Dioxide Level 27.3 MEQ/L Anion Gap 7 MEQ/L Estimat Glomerular Filtration Rate 131 ML/MIN Vitals/IOs Vital Signs Date Time Temp Pulse Resp B/P (MAP) Pulse Ox O2 Delivery O2 Flow Rate FiO2 11/15/17 06:00 97.9 71 17 91/56 (22) 97 Assessment & Plan Problem List: (1) Major depressive disorder, recurrent, severe with psychotic features ICD Codes: F33.3 - Major depressive disorder, recurrent, severe with psychotic symptoms Assessment & Plan Patient continues to be very oppositional with treatment plan although is adherent to medications. She continues to be inconsistent with nutritional intake is noted to be hydrating when provided with fluid at bedside. She continues to refuse to leave her room and participate in any activities. Continue to encourage patient to maintain personal hygiene and participate in groups and activities and meals on the unit. We will continue current treatment regimen as patient restarted here into treatment. We will consider adjunct to antidepressant patient continues to have limited to poor response. Continue to monitor mood and behavior. Discharge planning in progress. Justification for Cont. Inpt. At risk of further decompensation of lower level of care Discharge Planning Back to her residence when psychiatrically stable Nuno Berger MD Nov 15, 2017 14:01
[2017-11-15] MEDS: REMOVE OLD NICOTINE PATCH T-DERMAL SCH (21:00)
[2017-11-16] MEDS: FREE WATER PO SCH ×6 (04:00→20:00)
[2017-11-16 05:44] VITALS: BP 123/69; PULSE 74; RESP 16; TEMP 98.2; O2SAT 96
[2017-11-16] MEDS: VENLAFAXINE HCL XR 75 MG CAP PO SCH ×2 (09:00→16:00)
[2017-11-16] MEDS: ENOXAPARIN SODIUM 40 MG/0.4 ML SYRINGE SQ SCH ×2 (09:00→16:00)
[2017-11-16] MEDS: NICOTINE 21 MG/24 HR PATCH T-DERMAL SCH (09:00)
[2017-11-16 17:08] VITALS: BP 98/51; PULSE 65; RESP 16; TEMP 79.8; O2SAT 96
--- NOTE | 2017-11-16 17:37 | HHI.PYPN ---
Subjective Remarks Patient seen for follow-up, chart reviewed. Discussion nursing staff reported the patient was out of her room to the geriatric chair in the dayroom and patient is to report back to the hallway or room was and laid on the floor. Patient refused medications this morning and refused any breakfast. Patient was later found lying in hospital bed continued to be selectively mute refusing to work with underwriter solicitation director individually. Patient was advised that adherence to treatment will be beneficial as well as continued nutritional intake to avoid patient managedive measures to maintain her hydration such as IV fluids. Review of Systems Except as stated in HPI: all other systems reviewed are Neg Mental Status Examination Appearance: Disheveled Consciousness: Alert Orientation: Person, Place, Date/Time Motor Activity: Normal gait Speech: Other (selectively mute) Language: Adequate Fund of Knowledge: Inadequate Memory: Impaired Mood: Oppositional Affect: Irritable Thought Process & Associations: Other (refused to interact during interview) Thought Content: Other (concrete and unable to assess due to limitation of participation for patient) Hallucination Type: Other (appears internally stimulated) Delusion Type: Other (unable to assess) Suicidal Ideation: Yes Suicidal Plan: No Suicidal Intention: No Homicidal Ideation: No Homicidal Plan: No Homicidal Intention: No Insight: Poor Judgment: Poor Results Vitals/IOs Vital Signs Date Time Temp Pulse Resp B/P (MAP) Pulse Ox O2 Delivery O2 Flow Rate FiO2 11/16/17 17:08 79.8 65 16 98/51 (67) 96 Intake and Output 11/16/17 11/16/17 11/17/17 08:00 16:00 00:00 Intake Total 360 ml 360 ml Balance 360 ml 360 ml Assessment & Plan Problem List: (1) Major depressive disorder, recurrent, severe with psychotic features ICD Codes: F33.3 - Major depressive disorder, recurrent, severe with psychotic symptoms Assessment & Plan Patient this time continues to be oppositional, refusing to participate in her care, refusing treatment recently. Discussion with patient's mother, starting olanzapine 5 mg p.o. daily along with continued in the faxing to 25 mg was discussed as well as the possibility of patient having to receive 1 mg IM if refuses p.o. meds which she agreed. Continue to encourage patient to participate in self-care as well as nutritional intake and participation in groups and activities. Continue to monitor mood and behavior. Patient to continue 1:1 observation. Patient is planning in progress. Justification for Cont. Inpt. At risk for further decompensation at lower level of care Discharge Planning Back to her residence once psychiatrically stable Nuno Berger MD Nov 16, 2017 17:37
[2017-11-16] MEDS: REMOVE OLD NICOTINE PATCH T-DERMAL SCH (20:18)
[2017-11-17] MEDS: FREE WATER PO SCH ×6 (04:00→20:00)
[2017-11-17 05:54] VITALS: BP 113/73; PULSE 82; RESP 18; TEMP 98.2; O2SAT 98
[2017-11-17] MEDS: OLANZapine 5 MG TAB PO SCH (08:56)
[2017-11-17] MEDS: OLANZapine IM 10 MG VIAL IM SCH (09:00)
[2017-11-17] MEDS: NICOTINE 21 MG/24 HR PATCH T-DERMAL SCH (09:00)
[2017-11-17] MEDS: VENLAFAXINE HCL XR 75 MG CAP PO SCH (09:03)
--- NOTE | 2017-11-17 12:26 | HHI.PYPN ---
Subjective Remarks Patient seen and examined with nurse in coverage for Dr. Berger. Chart reviewed. Patient refused dinner last evening and breakfast and lunch today. Case discussed with nursing staff. On my examination today, patient remains with one to one sitter. She is negativistic and mute. She forcefully refuses my efforts to examine her arm for EPS. She covers her head with her blanket and refuses to engage in interview. She is in no evident physical distress. No evident side effects from medications. Review of Systems ROS Limitations: Uncooperative, Poor Historian Other Unable to obtain ROS. Patient is mute. Mental Status Examination Appearance: Disheveled Consciousness: Alert Motor Activity: Other (no motor abnormalities noted but patient does refuse exam.) Speech: Other (patient is mute) Affect: Irritable Insight: Poor Judgment: Poor Mental Status Exam Remarks MSE is limited as patient is mute. Results Labs Labs reviewed. I do note mild hypokalemia on most recent BMP, but it appears this was repleted with potassium supplementation. Vitals/IOs Vital Signs Date Time Temp Pulse Resp B/P (MAP) Pulse Ox O2 Delivery O2 Flow Rate FiO2 11/17/17 05:54 98.2 82 18 113/73 (86) 98 Intake and Output 11/17/17 11/17/17 11/18/17 08:00 16:00 00:00 Intake Total 100 ml 0 ml Balance 100 ml 0 ml Assessment & Plan Problem List: (1) Major depressive disorder, recurrent, severe with psychotic features ICD Codes: F33.3 - Major depressive disorder, recurrent, severe with psychotic symptoms Assessment & Plan Recheck BMP as well as Mg and PO4 in the morning and consult the dietitian given poor PO intake. Check CK in the morning given apparent immobility in bed. Continue psychotropics as ordered. To consider an Ativan challenge for possible catatonia. Continue to monitor on the inpatient unit, continue one-to- one. Continue other medications and care as ordered. Justification for Cont. Inpt. Impairment in self-care. Risk for decompensation in less restrictive environment. Discharge Planning Per Dr. Berger. Efrain Peralta MD Nov 17, 2017 12:26
[2017-11-17 18:00] VITALS: BP 98/59; PULSE 71; RESP 17; TEMP 97.3; O2SAT 98
[2017-11-17] MEDS: REMOVE OLD NICOTINE PATCH T-DERMAL SCH (20:57)
[2017-11-18 06:10] VITALS: BP 120/77; PULSE 76; RESP 16; TEMP 97.9; O2SAT 96
[2017-11-18] MEDS: FREE WATER PO SCH ×6 (09:14→20:00)
[2017-11-18] MEDS: OLANZapine 5 MG TAB PO SCH (09:16)
[2017-11-18] MEDS: ENOXAPARIN SODIUM 40 MG/0.4 ML SYRINGE SQ SCH (09:16)
[2017-11-18] MEDS: VENLAFAXINE HCL XR 75 MG CAP PO SCH (09:16)
[2017-11-18] MEDS: NICOTINE 21 MG/24 HR PATCH T-DERMAL SCH (09:16)
[2017-11-18] MEDS: OLANZapine IM 10 MG VIAL IM SCH (09:16)
[2017-11-18 11:13] LABS: BICARBONATE 29.5 MEQ/L (21.0-32.0); CALCIUM 8.9 MG/DL (8.5-10.1); CREATININE 0.71 MG/DL (0.50-1.00); MAGNESIUM 2.2 MG/DL (1.5-2.5)
--- NOTE | 2017-11-18 14:49 | HHI.PYPN ---
Subjective Remarks Patient was seen and case discussed with nursing. Patient continues to refuse the interview. She briefly looks at me and then was back to laying down. Labwork was reviewed and phosphorus is a 2.0. It appears her TSH was low a week ago and we will get a T3-T4 today. Per her one-to-one she has not been talking Mental Status Examination Appearance: Disheveled Consciousness: Alert Motor Activity: Other (no motor abnormalities noted but patient does refuse exam.) Speech: Other (patient is mute) Affect: Irritable Insight: Poor Judgment: Poor Results Labs Test 11/18/17 10:00 Blood Urea Nitrogen 10 MG/DL Creatinine 0.71 MG/DL Random Glucose 127 MG/DL Calcium Level 8.9 MG/DL Phosphorus Level 2.0 MG/DL Magnesium Level 2.2 MG/DL Sodium Level 140 MEQ/L Potassium Level 3.6 MEQ/L Chloride Level 104 MEQ/L Carbon Dioxide Level 29.5 MEQ/L Anion Gap 7 MEQ/L Estimat Glomerular Filtration Rate 100 ML/MIN Total Creatine Kinase 26 U/L Vitals/IOs Vital Signs Date Time Temp Pulse Resp B/P (MAP) Pulse Ox O2 Delivery O2 Flow Rate FiO2 11/18/17 06:10 97.9 76 16 120/77 (91) 96 Assessment & Plan Problem List: (1) Major depressive disorder, recurrent, severe with psychotic features ICD Codes: F33.3 - Major depressive disorder, recurrent, severe with psychotic symptoms Assessment & Plan Ordered T3, T4 Justification for Cont. Inpt. Patient would decompensate in a less restrictive setting Edmund Holland DO Nov 18, 2017 14:49
[2017-11-18 16:06] LABS: FREE T3 2.84 PG/ML (2.18-3.98); FREE T4 1.4 NG/DL (0.76-1.46)
[2017-11-18 18:21] VITALS: BP 88/54; PULSE 72; RESP 16; TEMP 97.4; O2SAT 95
[2017-11-18] MEDS: REMOVE OLD NICOTINE PATCH T-DERMAL SCH (20:53)
[2017-11-19] MEDS: FREE WATER PO SCH ×6 (04:00→20:00)
[2017-11-19 05:38] VITALS: BP 114/75; PULSE 79; RESP 16; TEMP 98.1; O2SAT 97
[2017-11-19] MEDS: OLANZapine 5 MG TAB PO SCH (09:46)
[2017-11-19] MEDS: NICOTINE 21 MG/24 HR PATCH T-DERMAL SCH (09:46)
[2017-11-19] MEDS: VENLAFAXINE HCL XR 75 MG CAP PO SCH (09:46)
[2017-11-19] MEDS: ENOXAPARIN SODIUM 40 MG/0.4 ML SYRINGE SQ SCH (09:52)
[2017-11-19] MEDS: OLANZapine IM 10 MG VIAL IM SCH (09:52)
--- NOTE | 2017-11-19 13:06 | HHI.PYPN ---
Subjective Remarks Patient was seen and case discussed with nursing. Today per sitter, patient willingly and spontaneously got up to eat breakfast and lunch without prompting. She even noticed that she had the wrong tray and changed it herself. Otherwise, she remains volitionally mute. Laying on her side with eyes closed refusing the interview. Mental Status Examination Appearance: Disheveled Consciousness: Alert Motor Activity: Other (no motor abnormalities noted but patient does refuse exam.) Speech: Other (patient is mute) Affect: Irritable Insight: Poor Judgment: Poor Results Vitals/IOs Vital Signs Date Time Temp Pulse Resp B/P (MAP) Pulse Ox O2 Delivery O2 Flow Rate FiO2 11/19/17 05:38 98.1 79 16 114/75 (88) 97 Intake and Output 11/19/17 11/19/17 11/20/17 08:00 16:00 00:00 Intake Total 600 ml Balance 600 ml Assessment & Plan Problem List: (1) Major depressive disorder, recurrent, severe with psychotic features ICD Codes: F33.3 - Major depressive disorder, recurrent, severe with psychotic symptoms Assessment & Plan Continue current treatment plan Justification for Cont. Inpt. Patient will decompensate in a less restrictive setting Edmund Holland DO Nov 19, 2017 13:06
[2017-11-19 18:47] VITALS: BP 101/63; PULSE 94; RESP 16; TEMP 97.7; O2SAT 99
[2017-11-19] MEDS: REMOVE OLD NICOTINE PATCH T-DERMAL SCH (21:00)
[2017-11-20] MEDS: FREE WATER PO SCH ×6 (04:00→20:00)
[2017-11-20 05:49] VITALS: BP 116/70; PULSE 82; RESP 16; TEMP 98.1; O2SAT 100
[2017-11-20] MEDS: OLANZapine IM 10 MG VIAL IM SCH (09:00)
[2017-11-20] MEDS: NICOTINE 21 MG/24 HR PATCH T-DERMAL SCH (09:00)
[2017-11-20] MEDS: OLANZapine 5 MG TAB PO SCH (09:56)
[2017-11-20] MEDS: VENLAFAXINE HCL XR 75 MG CAP PO SCH (09:56)
[2017-11-20] MEDS: ENOXAPARIN SODIUM 40 MG/0.4 ML SYRINGE SQ SCH (09:56)
--- NOTE | 2017-11-20 11:40 | PD.TTN ---
Patient Problems 1. Discharge planning 2. Medication compliance 3. Knowledge deficit 4. Lack of coping skills Progress Toward Goals Provider Present: Dr. Meghann Berger Provider Input: 11/20/17 patient remains behavior problem and unpredictable, suggestion with team to remove her blanket and push engagement 11/08/17 majorly depressed and currently not eating, is on 2600 now and if in need for infusions she may need return to the 4th floor, she is in need for some medication adjustment and time to respond them 11/13/17 Patient is medication complaint. Medication will be added. Patient is selectively mute, depressed. Nurse(s) Input: 11/13/17 Patient's nurse reports seclusive, affect flat. Patient presents disheveled, mute, depressed. Is not eating, lying in bed. Psychiatric Counselors Present: Lyudmila Velasquez LCSW Psych Therapist Input: 11/20/18 still mute and not making any eye contact, no cooperation or communication possible, looks away, no responds with physical expressions either, refuses therapist completely mother wants to meet and discuss patients outpatient options and continuum of care in person, will arrange for this week 11/08/17 unstable, needs stablization, no talking, remains mute, withdrawn, still on a 1:1 and not engaging , no eye contact 11/13/17 Patient found lying in her bed with a 1:1. Patient is mute making poor eye contact. Patient has not eaten since yesterday and refused her breakfast this morning. Patient presents depressed, mute, non compliant with medication. Group Spec/RT/OT/GUAMAN Present: DENIZ Lozano, Kade Fu, OT Group Spec/RT/OT/GUAMAN Input: 11/20/17 dos not leave her room to attend any groups 11/08/17 does not attend any groups 11/13/17 Patient is seclusive and does not attend any groups. Lyudmila Velasquez LCSW Nov 20, 2017 11:40
[2017-11-20 18:10] VITALS: BP 101/61; PULSE 87; RESP 16; TEMP 98; O2SAT 100
--- NOTE | 2017-11-20 18:26 | HHI.PYPN ---
Subjective Remarks Patient seen for follow-up, chart reviewed. Discussion with nursing staff reported the patient had been off her breakfast and lunch on her own without prompting, continues to be selectively mute and he was able to tolerate being in the room longer today. Patient was found in the room sitting in a hospital chair having lunch continues to have poor eye contact although not pretending to be asleep, note found in casual clothing but continues to have limited cooperation and interaction with caption writer continues with selective mutism. Patient was encouraged to participate in interview today multiple times but continues to refuse to speak to staff or to either. As per nursing staff, the patient's mother also is requesting to meet with caption writer and counselor tomorrow. Patient has been compliant with treatment and improve nutritional p.o. intake. Review of Systems Except as stated in HPI: all other systems reviewed are Neg Mental Status Examination Appearance: Disheveled Consciousness: Alert Orientation: Person, Place, Date/Time Motor Activity: Normal gait Speech: Other (patient is mute) Language: Other (Patient continues to be selectively mute) Mood: Other (Unable to assess due to patient not cooperating with interview.) Affect: Irritable Thought Process & Associations: Other (Unable to assess to the patient not cooperating with interview.) Thought Content: Other (Unable to assess this patient not cooperating with interview.) Hallucination Type: Other (Unable to assess this patient not cooperating with interview.) Delusion Type: Other (Unable to assess this patient not cooperating with interview.) Insight: Poor Judgment: Poor Mental Status Exam Remarks Unable to assess patient's having suicidal homicidal ideation this patient is uncooperative with interview. Continues to be selectively mute. Results Vitals/IOs Vital Signs Date Time Temp Pulse Resp B/P (MAP) Pulse Ox O2 Delivery O2 Flow Rate FiO2 11/20/17 18:10 98.0 87 16 101/61 (74) 100 Intake and Output 11/20/17 11/20/17 11/21/17 08:00 16:00 00:00 Intake Total 240 ml Balance 240 ml Assessment & Plan Problem List: (1) Major depressive disorder, recurrent, severe with psychotic features ICD Codes: F33.3 - Major depressive disorder, recurrent, severe with psychotic symptoms Assessment & Plan Patient at this time continues to be slightly me with staff and caption writer although has been noted to be more participatory in meals that she gets up to go to the day room to have meals and has tolerated the time of my other patients in the room with less resistance to showers as well. We will continue current treatment for now continue to monitor with behavior. Continue to encourage patient to participate in groups and activities as well as continue to have meals outside of her room and maintaining personal hygiene. Discharge planning in progress. Justification for Cont. Inpt. At risk for further decompensation at lower level of care. Discharge Planning To be determined. Nuno Berger MD Nov 20, 2017 18:26
[2017-11-20] MEDS: REMOVE OLD NICOTINE PATCH T-DERMAL SCH (21:00)
[2017-11-21] MEDS: FREE WATER PO SCH ×5 (04:00→20:00)
[2017-11-21 08:00] VITALS: BP 125/79; PULSE 89; RESP 16; TEMP 97.4; O2SAT 100
[2017-11-21] MEDS: OLANZapine IM 10 MG VIAL IM SCH (09:00)
[2017-11-21] MEDS: NICOTINE 21 MG/24 HR PATCH T-DERMAL SCH (09:00)
[2017-11-21] MEDS: VENLAFAXINE HCL XR 75 MG CAP PO SCH (09:48)
[2017-11-21] MEDS: OLANZapine 5 MG TAB PO SCH ×2 (09:48→22:48)
[2017-11-21] MEDS: ENOXAPARIN SODIUM 40 MG/0.4 ML SYRINGE SQ SCH (09:49)
--- NOTE | 2017-11-21 16:44 | HHI.PYPN ---
Subjective Remarks Patient is here for follow-up, chart reviewed. Discussion nursing staff reported the patient had been coming out for meals and was attending groups of the nonverbally participatory but sitting in on the groups. Patient was found sitting in hospital chair eating lunch attempted to interact or engage patient in interview but continues to refuse to reply and is continues to be selectively mute. Renzo or an counselor met with patient's mother to discuss discharge plan this patient although continues to be selectively mute is participating in groups, coming out of her room for meals and appears to be responding to treatment in which she is now able to perform ADLs independently. Review of Systems Except as stated in HPI: all other systems reviewed are Neg Mental Status Examination Appearance: Disheveled Consciousness: Alert Orientation: Person, Place, Date/Time Motor Activity: Normal gait Speech: Other (patient is mute) Language: Other (Patient continues to be selectively mute) Mood: Other (Unable to assess due to patient not cooperating with interview.) Affect: Irritable Thought Process & Associations: Other (Unable to assess to the patient not cooperating with interview.) Thought Content: Other (Unable to assess this patient not cooperating with interview.) Hallucination Type: Other (Unable to assess this patient not cooperating with interview.) Delusion Type: Other (Unable to assess this patient not cooperating with interview.) Insight: Poor Judgment: Poor Results Vitals/IOs Vital Signs Date Time Temp Pulse Resp B/P (MAP) Pulse Ox O2 Delivery O2 Flow Rate FiO2 11/21/17 08:00 97.4 89 16 125/79 (94) 100 Intake and Output 11/21/17 11/21/17 11/22/17 08:00 16:00 00:00 Intake Total 1200 ml 1200 ml Balance 1200 ml 1200 ml Assessment & Plan Problem List: (1) Major depressive disorder, recurrent, severe with psychotic features ICD Codes: F33.3 - Major depressive disorder, recurrent, severe with psychotic symptoms Assessment & Plan Patient at this time continues to be selectively mute although noted to engaging in some groups during the day as well as being out in the day room for meals. Patient has been compliant with treatment. We will increase olanzapine to 5 mg p.o. twice daily, continue Effexor at 225 mg p.o. daily. Continue to monitor mood and behavior. Continue to encourage patient to maintain personal hygiene and participate more in groups and activities. Discharge planning in progress Justification for Cont. Inpt. At risk for further decompensation if at lower level of care Discharge Planning To be determined Nuno Berger MD Nov 21, 2017 16:44
[2017-11-21 18:01] VITALS: BP 120/59; PULSE 87; RESP 16; TEMP 98; O2SAT 98
[2017-11-21] MEDS ORDERED: OLANZapine IM 10 MG VIAL IM PRN (21:00)
[2017-11-21] MEDS: REMOVE OLD NICOTINE PATCH T-DERMAL SCH (21:00)
[2017-11-22] MEDS: FREE WATER PO SCH ×6 (04:00→20:35)
[2017-11-22 06:00] VITALS: BP 113/74; PULSE 97; RESP 18; TEMP 98.4; O2SAT 98
[2017-11-22] MEDS: ENOXAPARIN SODIUM 40 MG/0.4 ML SYRINGE SQ SCH (08:46)
[2017-11-22] MEDS: VENLAFAXINE HCL XR 75 MG CAP PO SCH (08:46)
[2017-11-22] MEDS: OLANZapine 5 MG TAB PO SCH ×2 (08:46→20:35)
[2017-11-22] MEDS: NICOTINE 21 MG/24 HR PATCH T-DERMAL SCH (08:49)
--- NOTE | 2017-11-22 17:07 | HHI.PYPN ---
Subjective Remarks Patient seen for follow-up, chart reviewed. Discussion nursing staff reported the patient has been out of the day room, attended groups, eating on peers and has been nodding to questions now. Patient was found lying in hospital bed continues to be selectively mute but was able to interact and engage in interview by nodding yes or no. Patient continued to agree to remain active on the unit and not stay in bed lying down as well as continue to eat meals peers and participated in groups. Patient yet to engage in verbal conversation. Review of Systems Except as stated in HPI: all other systems reviewed are Neg Mental Status Examination Appearance: Disheveled Consciousness: Alert Orientation: Person, Place, Date/Time Motor Activity: Normal gait Speech: Other (patient is mute) Language: Other (Patient continues to be selectively mute) Mood: Other (Unable to assess due to patient not cooperating with interview.) Affect: Flat Thought Process & Associations: Other (Unable to assess to the patient not cooperating with interview.) Thought Content: Other (Unable to assess this patient not cooperating with interview.) Hallucination Type: Other (Unable to assess this patient not cooperating with interview.) Delusion Type: Other (Unable to assess this patient not cooperating with interview.) Insight: Poor Judgment: Poor Results Vitals/IOs Vital Signs Date Time Temp Pulse Resp B/P (MAP) Pulse Ox O2 Delivery O2 Flow Rate FiO2 11/22/17 06:00 98.4 97 18 113/74 (87) 98 Assessment & Plan Problem List: (1) Major depressive disorder, recurrent, severe with psychotic features ICD Codes: F33.3 - Major depressive disorder, recurrent, severe with psychotic symptoms Assessment & Plan Patient this time continues to be selectively mute but engaging in interview today by nodding yes and no questions. Continue to encourage patient to maintain compliance with treatment as well as not be isolative in her room to participate in groups and meals. Continue to encourage patient to maintain personal hygiene. Continue to monitor mood and behavior. Discharge planning in progress. Justification for Cont. Inpt. At risk for decompensation and lower level of care. Discharge Planning To be determined. Nuno Berger MD Nov 22, 2017 17:07
[2017-11-22 18:00] VITALS: BP 131/85; PULSE 102; RESP 16; TEMP 98; O2SAT 98
[2017-11-22] MEDS: REMOVE OLD NICOTINE PATCH T-DERMAL SCH (20:36)
[2017-11-23] MEDS: FREE WATER PO SCH ×6 (04:00→20:00)
[2017-11-23 06:03] VITALS: BP 109/66; PULSE 105; RESP 18; TEMP 98; O2SAT 99
[2017-11-23] MEDS: OLANZapine 5 MG TAB PO SCH ×2 (08:41→20:28)
[2017-11-23] MEDS: VENLAFAXINE HCL XR 75 MG CAP PO SCH (08:41)
[2017-11-23] MEDS: ENOXAPARIN SODIUM 40 MG/0.4 ML SYRINGE SQ SCH (08:42)
[2017-11-23] MEDS: NICOTINE 21 MG/24 HR PATCH T-DERMAL SCH (09:00)
--- NOTE | 2017-11-23 11:57 | HHI.PYPN ---
Subjective Remarks Patient seen for follow, chart reviewed. Discussion is to report the patient has a complaint of medications but after meals and attending groups. Patient was found in day room eating lunch and single telegraphic typewriter repairer to follow her back to her room to show a paper which she had written down some statements. Statements read the patient was requesting in order to have her fingernails and toenails trimmed, requesting mother to bring in candy and if mother can bring in a soccer ball. Patient also was able to state that she plans on being discharged to her mother's home, agreeable to outpatient follow-up when asked about suicidality patient shrugs her shoulders not getting direct answers. When asked about the last time she has suicidal ideation patient again that he will give a clear answer. When asked if patient would advise staff if she had thoughts of self-harm here in the unit again which just shrugs shoulders. She denies any suicide ideations at this time. Patient denies any perceptual service with delusions. Patient agrees a shower today to continue participation in groups. Patient continues to be selectively mute but engaging in interview by nodding yes or no. Review of Systems Except as stated in HPI: all other systems reviewed are Neg Mental Status Examination Appearance: Disheveled, Malodorous Consciousness: Alert Orientation: Person, Place, Date/Time Motor Activity: Normal gait Speech: Other (patient is selectively mute) Language: Other (Patient continues to be selectively mute) Attention and Concentration: Adequate Mood: Other (Shrugs her shoulders) Affect: Flat Thought Process & Associations: Other ([place] able to answers questions by nodding yes or no) Thought Content: Other (Unable to assess this patient not cooperating with interview.) Hallucination Type: None Delusion Type: None Suicidal Ideation: No Suicidal Plan: No Suicidal Intention: No Homicidal Ideation: No Homicidal Plan: No Homicidal Intention: No Insight: Poor Judgment: Poor Results Vitals/IOs Vital Signs Date Time Temp Pulse Resp B/P (MAP) Pulse Ox O2 Delivery O2 Flow Rate FiO2 11/23/17 06:03 98.0 105 18 109/66 (80) 99 Assessment & Plan Problem List: (1) Major depressive disorder, recurrent, severe with psychotic features ICD Codes: F33.3 - Major depressive disorder, recurrent, severe with psychotic symptoms Assessment & Plan Patient this time now more engaging in interview able to answer questions by nodding yes or no but continued to be selectively mute. Patient appeared to respond to current treatment as she is more participatory in self-care, nutritional intake and activities here on the unit. Continue current treatment. Continue monitoring behavior. This was planning in progress. Justification for Cont. Inpt. At risk for further decompensation a lower level of care. Discharge Planning Patient to return back home to mother's residence. Nuno Berger MD Nov 23, 2017 11:57
[2017-11-23 18:20] VITALS: BP 124/88; PULSE 97; RESP 18; TEMP 97.5; O2SAT 98
[2017-11-23] MEDS: REMOVE OLD NICOTINE PATCH T-DERMAL SCH (20:49)
[2017-11-24] MEDS: FREE WATER PO SCH ×6 (04:00→20:00)
[2017-11-24 05:50] VITALS: BP 99/57; PULSE 93; RESP 16; TEMP 97.9; O2SAT 99
[2017-11-24] MEDS: VENLAFAXINE HCL XR 75 MG CAP PO SCH (08:30)
[2017-11-24] MEDS: OLANZapine 5 MG TAB PO SCH ×2 (08:31→21:06)
[2017-11-24] MEDS: ENOXAPARIN SODIUM 40 MG/0.4 ML SYRINGE SQ SCH (08:31)
[2017-11-24] MEDS: NICOTINE 21 MG/24 HR PATCH T-DERMAL SCH (09:00)
--- NOTE | 2017-11-24 15:27 | HHI.PYPN ---
Subjective Remarks Patient seen for follow, chart reviewed. Discussion nursing staff reported the patient was noted to interact with other patients, speaking with them during board games, continue to attend groups and out for meals. Patient was found lying in hospital bed reading a book noted to be somewhat disheveled but noted to have showered. Patient initially was refusing to interact but later started to engage by nodding during questioning. Patient denies any suicidal ideations , homicidal ideations perceptional service of delusions. Patient was unable to express how her mood has been but did nod yes to her plan to returning back home post discharge. Patient states she had not thought about her plans upon discharge but will think about this. Patient reports being of her meals and attending groups continues requests assistance with clipping of her nails. Review of Systems Except as stated in HPI: all other systems reviewed are Neg Mental Status Examination Appearance: Disheveled (Showered) Consciousness: Alert Orientation: Person, Place, Date/Time Motor Activity: Normal gait Speech: Other (patient is selectively mute) Language: Other (Patient continues to be selectively mute) Attention and Concentration: Adequate Mood: Other (Shrugs her shoulders) Affect: Flat Thought Process & Associations: Other ([place] able to answers questions by nodding yes or no) Thought Content: Other (Unable to assess as she is only nodding yes or no to questioning) Hallucination Type: None Delusion Type: None Suicidal Ideation: No Suicidal Plan: No Suicidal Intention: No Homicidal Ideation: No Homicidal Plan: No Homicidal Intention: No Insight: Poor Judgment: Poor Results Vitals/IOs Vital Signs Date Time Temp Pulse Resp B/P (MAP) Pulse Ox O2 Delivery O2 Flow Rate FiO2 11/24/17 05:50 97.9 93 16 99/57 (66) 99 Assessment & Plan Problem List: (1) Major depressive disorder, recurrent, severe with psychotic features ICD Codes: F33.3 - Major depressive disorder, recurrent, severe with psychotic symptoms Assessment & Plan Patient at this time continues to be selectively mute but now noted to be interacting by nodding yes or no during questioning and interview. Patient also interacting with other peers, attending groups and with adequate nutritional intake. Continue current treatment. Continue monitoring with behavior. Continue to encourage patient to participate and engage in interview as well as to maintain personal hygiene. Discharge planning in progress Justification for Cont. Inpt. At risk for decompensation at lower level of care Discharge Planning To return back to mother's residence once psychiatrically stable. Nuno Berger MD Nov 24, 2017 15:27
[2017-11-24] MEDS: REMOVE OLD NICOTINE PATCH T-DERMAL SCH (21:00)
[2017-11-25] MEDS: FREE WATER PO SCH ×6 (04:00→20:00)
[2017-11-25 04:59] VITALS: BP 100/60; PULSE 88; RESP 17; TEMP 97.8; O2SAT 97
[2017-11-25] MEDS: VENLAFAXINE HCL XR 75 MG CAP PO SCH (09:00)
[2017-11-25] MEDS: NICOTINE 21 MG/24 HR PATCH T-DERMAL SCH (09:00)
[2017-11-25] MEDS: OLANZapine 5 MG TAB PO SCH ×2 (09:00→21:34)
[2017-11-25] MEDS: ENOXAPARIN SODIUM 40 MG/0.4 ML SYRINGE SQ SCH (09:01)
--- NOTE | 2017-11-25 12:45 | HHI.PYPN ---
Subjective Remarks Pt seen and discussed with staff. She remains selectively mute, but does engage in very sparse verbal exchanges in interview with author today. Staff report that this is the first time she has talked today. She appears to be thought blocking at times. Staff report that she has been eating and drinking well and took medications without side effects. Today she spent sometime in day room which is an improvement. She appear internally stimulated but denies AVH. No aggression or agitation on unit. I received a message from mother requesting a call in order to disclose information to MD. Call was returned but mother did not answer or return call. Mental Status Examination Appearance: Disheveled (Showered) Consciousness: Alert Orientation: Person, Place, Date/Time Motor Activity: Normal gait Speech: Hesitant, Slow, Other (paucity of speech) Language: Adequate Attention and Concentration: Other (poor) Mood: Other ("fine") Affect: Flat Thought Process & Associations: Other ([place] ) Thought Content: Thought blocking Hallucination Type: Other (appears intnerally stimulated) Delusion Type: None Suicidal Ideation: No Suicidal Plan: No Suicidal Intention: No Homicidal Ideation: No Homicidal Plan: No Homicidal Intention: No Insight: Poor Judgment: Poor Results Vitals/IOs Vital Signs Date Time Temp Pulse Resp B/P (MAP) Pulse Ox O2 Delivery O2 Flow Rate FiO2 11/25/17 04:59 97.8 88 17 100/60 (73) 97 Assessment & Plan Problem List: (1) Major depressive disorder, recurrent, severe with psychotic features ICD Codes: F33.3 - Major depressive disorder, recurrent, severe with psychotic symptoms Assessment & Plan Pt slowly improving. Continue current tx plan. Estimated LOS: days Justification for Cont. Inpt. impairments in self care and reality testing Fatimah Foote MD Nov 25, 2017 12:45
[2017-11-25 18:08] VITALS: BP 138/97; PULSE 103; RESP 17; TEMP 97.2; O2SAT 99
[2017-11-25] MEDS: REMOVE OLD NICOTINE PATCH T-DERMAL SCH (21:00)
[2017-11-26] MEDS: FREE WATER PO SCH ×6 (04:00→20:00)
[2017-11-26 05:07] VITALS: BP 109/66; PULSE 83; RESP 16; TEMP 97.8; O2SAT 97
[2017-11-26] MEDS: ENOXAPARIN SODIUM 40 MG/0.4 ML SYRINGE SQ SCH (08:16)
[2017-11-26] MEDS: OLANZapine 5 MG TAB PO SCH ×2 (08:16→21:00)
[2017-11-26] MEDS: VENLAFAXINE HCL XR 75 MG CAP PO SCH (08:16)
[2017-11-26] MEDS: NICOTINE 21 MG/24 HR PATCH T-DERMAL SCH (09:00)
--- NOTE | 2017-11-26 15:30 | HHI.PYPN ---
Subjective Remarks Pt seen and discussed with staff. Pt is improving and today has been out of room and attended therapeutic group. Verbal output has increased some. Mother reported to RN that pt c/o of suicidal ideations and made delusional statements during visitation yesterday. Pt states that she has had some SI today but denies intent to harm. Mental Status Examination Appearance: Other (hair in face) Consciousness: Alert Orientation: Person, Place, Date/Time Motor Activity: Normal gait Speech: Hesitant, Slow, Other (paucity of speech) Language: Adequate Attention and Concentration: Other (poor) Mood: Other ("fine") Affect: Flat Thought Process & Associations: Other ([place] ) Thought Content: Thought blocking Hallucination Type: Other (appears intnerally stimulated) Delusion Type: None Suicidal Ideation: No Suicidal Plan: No Suicidal Intention: No Homicidal Ideation: No Homicidal Plan: No Homicidal Intention: No Insight: Poor Judgment: Poor Results Vitals/IOs Vital Signs Date Time Temp Pulse Resp B/P (MAP) Pulse Ox O2 Delivery O2 Flow Rate FiO2 11/26/17 05:07 97.8 83 16 109/66 (80) 97 Intake and Output 11/26/17 11/26/17 11/27/17 08:00 16:00 00:00 Intake Total 360 ml Balance 360 ml Assessment & Plan Problem List: (1) Major depressive disorder, recurrent, severe with psychotic features ICD Codes: F33.3 - Major depressive disorder, recurrent, severe with psychotic symptoms Assessment & Plan Continue current tx plan, Estimated LOS: days Justification for Cont. Inpt. impairments in self care, safety and reality testing Fatimah Foote MD Nov 26, 2017 15:30
[2017-11-26 16:41] VITALS: PULSE 79; RESP 17; TEMP 98.1; O2SAT 98
[2017-11-26] MEDS: REMOVE OLD NICOTINE PATCH T-DERMAL SCH (20:26)
[2017-11-27] MEDS: FREE WATER PO SCH ×6 (04:00→20:00)
[2017-11-27] MEDS: OLANZapine 5 MG TAB PO SCH ×2 (08:21→21:02)
[2017-11-27] MEDS: VENLAFAXINE HCL XR 75 MG CAP PO SCH (08:21)
[2017-11-27] MEDS: ENOXAPARIN SODIUM 40 MG/0.4 ML SYRINGE SQ SCH (08:22)
[2017-11-27] MEDS: NICOTINE 21 MG/24 HR PATCH T-DERMAL SCH (08:22)
--- NOTE | 2017-11-27 15:08 | HHI.PYPN ---
Subjective Remarks Patient seen for follow-up, chart reviewed. Discussion nursing staff reported patient now is noted to be more verbal of 1 peers and staff. Patient was found lying in hospital bed and noted to be initially guarded but was able to engage in verbal conversation with technical publications writer. Patient states that she is feeling "okay" mentioning that she has been having some sore throat and headache but that the weekend had gone with her attending groups. Patient continues to report feeling depressed with intermittent suicide ideations. Patient states that she had discussed with her today when she muddiness of breaking the glass from the marriage and cutting herself again. Patient denies any intention at this time. Patient reports he is drinking well, continues to attend groups. Patient denies any visual or auditory hallucinations. Patient states there are 3 reasons to live on her mother, attending [employer] game and her pets. Review of Systems Except as stated in HPI: all other systems reviewed are Neg Mental Status Examination Appearance: Other (hair in face) Consciousness: Alert Orientation: Person, Place, Date/Time Motor Activity: Normal gait Speech: Unremarkable, Other (low volume) Language: Adequate Fund of Knowledge: Inadequate Attention and Concentration: Adequate Memory: Unremarkable Mood: Other ("ok") Affect: Flat Thought Process & Associations: Other ([place] ) Thought Content: Thought blocking Hallucination Type: Other (appears intnerally stimulated) Delusion Type: None Suicidal Ideation: No Suicidal Plan: No Suicidal Intention: No Homicidal Ideation: No Homicidal Plan: No Homicidal Intention: No Insight: Poor Judgment: Poor Results Vitals/IOs Vital Signs Date Time Temp Pulse Resp B/P (MAP) Pulse Ox O2 Delivery O2 Flow Rate FiO2 11/26/17 16:41 98.1 79 17 98 Intake and Output 11/27/17 11/27/17 11/28/17 08:00 16:00 00:00 Intake Total 550 ml Balance 550 ml Assessment & Plan Problem List: (1) Major depressive disorder, recurrent, severe with psychotic features ICD Codes: F33.3 - Major depressive disorder, recurrent, severe with psychotic symptoms Assessment & Plan Patient this time noted to have improvement in communication with technical publications writer and staff. Patient continues to report feeling depressed along with intermittent suicide ideations but is now noted to be participatory in her care, groups and activities and meals. We will continue monitoring mood and behavior as patient appears to be improving. We will consider increasing olanzapine patient seen to have limited response. Patient is planning in progress. Justification for Cont. Inpt. At risk of further decompensation at lower level of care. Discharge Planning Discharge patient's mother's residence. Nuno Berger MD Nov 27, 2017 15:08
--- NOTE | 2017-11-27 16:31 | PD.TTN ---
Patient Problems 1. Discharge planning 2. Medication compliance 3. Knowledge deficit 4. Lack of coping skills Progress Toward Goals Provider Present: Dr. Meghann Berger Provider Input: 11/27/17will re-assess today and appears to start responding and little progress with talking 11/22/17 Doctor overheard she spoke [place] to staff and she wrote a letter 11/20/17 patient remains behavior problem and unpredictable, suggestion with team to remove her blanket and push engagement 11/08/17 majorly depressed and currently not eating, is on 2600 now and if in need for infusions she may need return to the 4th floor, she is in need for some medication adjustment and time to respond them 11/13/17 Patient is medication complaint. Medication will be added. Patient is selectively mute, depressed. Nurse(s) Input: 11/13/17 Patient's nurse reports seclusive, affect flat. Patient presents disheveled, mute, depressed. Is not eating, lying in bed. Psychiatric Counselors Present: Lyudmila Velasquez LCSW Psych Therapist Input: 11/27/17 she is reported with more talking and interacting, spoke to this counselor this afternoon, but limited and direct and about her wishes only such as wanting her blanket -will meet with mother and patient together and discuss her progress 11/22/17 remains mute to therapist she left a note for doctor about her room mate and her wishes about the room mate 11/20/18 still mute and not making any eye contact, no cooperation or communication possible, looks away, no responds with physical expressions either, refuses therapist completely mother wants to meet and discuss patients outpatient options and continuum of care in person, will arrange for this week 11/08/17 unstable, needs stablization, no talking, remains mute, withdrawn, still on a 1:1 and not engaging , no eye contact 11/13/17 Patient found lying in her bed with a 1:1. Patient is mute making poor eye contact. Patient has not eaten since yesterday and refused her breakfast this morning. Patient presents depressed, mute, non compliant with medication. Group Spec/RT/OT/GUAMAN Present: DENIZ Lozano, Kade Fu, OT Group Spec/RT/OT/GUAMAN Input: 11/27/17 progess in participation during exercise group , plays basketball and came to [place] but still seclusvie 11/22/17minimal progess in group activities , participates in basketball 11/20/17 dos not leave her room to attend any groups 11/08/17 does not attend any groups 11/13/17 Patient is seclusive and does not attend any groups. Lyudmila VelasquezW Nov 27, 2017 16:31
[2017-11-27 18:07] VITALS: BP 125/80; PULSE 105; RESP 18; TEMP 97.1; O2SAT 99
[2017-11-27] MEDS: REMOVE OLD NICOTINE PATCH T-DERMAL SCH (21:00)
[2017-11-28] MEDS: FREE WATER PO SCH ×6 (04:00→20:00)
[2017-11-28 04:47] VITALS: BP 105/64; PULSE 82; RESP 16; TEMP 97.5; O2SAT 96
[2017-11-28] MEDS: OLANZapine 5 MG TAB PO SCH ×2 (08:17→21:15)
[2017-11-28] MEDS: VENLAFAXINE HCL XR 75 MG CAP PO SCH (08:17)
[2017-11-28] MEDS: NICOTINE 21 MG/24 HR PATCH T-DERMAL SCH (08:19)
[2017-11-28] MEDS: ENOXAPARIN SODIUM 40 MG/0.4 ML SYRINGE SQ SCH (08:19)
--- NOTE | 2017-11-28 15:59 | HHI.PYPN ---
Subjective Remarks Patient seen for follow-up, chart reviewed. Discussion nursing staff reported the patient noted to be talking a lot more with staff, attending groups, denied any suicide ideations since yesterday, slept well. Patient was found lying hospital or reading a book noted B, cooperative. Patient states that she had been feeling "fine" continue report feeling depressed along with continued suicidal ideations but denied any since this morning. Patient states that yesterday her last episode of having these thoughts lasted a couple of hours and continues to feel unsure and unsafe being alone. Patient states that she also has spoken with her mothe during visiting hours and had briefly spoken about her going back to live with mother which she is okay with. Patient reports tolerating medications well. Patient denies any physical symptoms at this time. Playground Director had a family meeting with mother patient and therapist which discharge planning was reviewed and discussed progression of treatment of patient's current depressive symptoms. Review of Systems Except as stated in HPI: all other systems reviewed are Neg Mental Status Examination Appearance: Disheveled Consciousness: Alert Orientation: Person, Place, Date/Time Motor Activity: Normal gait Speech: Unremarkable, Other (low volume) Language: Adequate Fund of Knowledge: Inadequate Attention and Concentration: Adequate Memory: Unremarkable Mood: Other ("ok") Affect: Blunt (Occasionally smiled) Thought Process & Associations: Linear Thought Content: Appropriate Hallucination Type: None, Other Delusion Type: None Suicidal Ideation: No Suicidal Plan: No Suicidal Intention: No Homicidal Ideation: No Homicidal Plan: No Homicidal Intention: No Insight: Poor Judgment: Poor Results Vitals/IOs Vital Signs Date Time Temp Pulse Resp B/P (MAP) Pulse Ox O2 Delivery O2 Flow Rate FiO2 11/28/17 04:47 97.5 82 16 105/64 (05) 96 Assessment & Plan Problem List: (1) Major depressive disorder, recurrent, severe with psychotic features ICD Codes: F33.3 - Major depressive disorder, recurrent, severe with psychotic symptoms Assessment & Plan Patient this time continues report feeling depressed along with continue suicide ideations which lasts hours but denied any recurrence since this morning. Patient also expressed uncertainty of feeling safe without having constant observation although patient has not had sitter during the evenings. If patient continues to deny suicide ideations or thoughts of self-harm we will plan for discontinuing one-to-one observation soon and to continue to monitor. We will continue current treatment. Continue to encourage patient to participate in groups and activities and self hygiene. Discharge planning in progress. Justification for Cont. Inpt. At risk for further decompensation if at lower level of care Discharge Planning Patient to return back to residence once psychiatrically stable. Nuno Berger MD Nov 28, 2017 15:59
[2017-11-28 18:29] VITALS: BP 117/62; PULSE 100; RESP 16; TEMP 97.3; O2SAT 97
[2017-11-28] MEDS: REMOVE OLD NICOTINE PATCH T-DERMAL SCH (20:15)
[2017-11-29] MEDS: FREE WATER PO SCH ×6 (04:00→20:00)
[2017-11-29 06:13] VITALS: BP 110/67; PULSE 77; RESP 16; TEMP 97.8; O2SAT 97
[2017-11-29] MEDS: VENLAFAXINE HCL XR 75 MG CAP PO SCH (08:11)
[2017-11-29] MEDS: NICOTINE 21 MG/24 HR PATCH T-DERMAL SCH (08:11)
[2017-11-29] MEDS: OLANZapine 5 MG TAB PO SCH ×2 (08:11→21:25)
--- NOTE | 2017-11-29 09:15 | PD.TTN ---
Patient Problems 1. Discharge planning 2. Medication compliance 3. Knowledge deficit 4. Lack of coping skills Progress Toward Goals Provider Present: Dr. Meghann Berger Provider Input: 11/29/17 Appears to be improving. STill some suicidal ideations. 11/27/17will re-assess today and appears to start responding and little progress with talking 11/22/17 Doctor overheard she spoke Urdu to staff and she wrote a letter 11/20/17 patient remains behavior problem and unpredictable, suggestion with team to remove her blanket and push engagement 11/08/17 majorly depressed and currently not eating, is on 2600 now and if in need for infusions she may need return to the 4th floor, she is in need for some medication adjustment and time to respond them 11/13/17 Patient is medication complaint. Medication will be added. Patient is selectively mute, depressed. Nurse(s) Input: 11/13/17 Patient's nurse reports seclusive, affect flat. Patient presents disheveled, mute, depressed. Is not eating, lying in bed. Psychiatric Counselors Present: Lyudmila Velasquez LCSW Psych Therapist Input: 11/29/17 talks now, bad visit with mom, overly attached to mother, talks more about feelings 11/27/17 she is reported with more talking and interacting, spoke to this counselor this afternoon, but limited and direct and about her wishes only such as wanting her blanket -will meet with mother and patient together and discuss her progress 11/22/17 remains mute to therapist she left a note for doctor about her room mate and her wishes about the room mate 11/20/18 still mute and not making any eye contact, no cooperation or communication possible, looks away, no responds with physical expressions either, refuses therapist completely mother wants to meet and discuss patients outpatient options and continuum of care in person, will arrange for this week 11/08/17 unstable, needs stablization, no talking, remains mute, withdrawn, still on a 1:1 and not engaging , no eye contact 11/13/17 Patient found lying in her bed with a 1:1. Patient is mute making poor eye contact. Patient has not eaten since yesterday and refused her breakfast this morning. Patient presents depressed, mute, non compliant with medication. Group Spec/RT/OT/GUAMAN Present: DENIZ Lozano, Kade Fu, OT, DENIZ Little Group Spec/RT/OT/GUAMAN Input: 11/29/17 Pt. attends 50% of groups, pt. talks selectively 11/27/17 progess in participation during exercise group , plays basketball and came to [employer] but still seclusvie 11/22/17minimal progess in group activities , participates in basketball 11/20/17 dos not leave her room to attend any groups 11/08/17 does not attend any groups 11/13/17 Patient is seclusive and does not attend any groups. Tato Gomez Nov 29, 2017 09:15
--- NOTE | 2017-11-29 16:59 | HHI.PYPN ---
Subjective Remarks Patient seen for follow-up, chart reviewed. Discussion nursing staff reported the patient continued to report feeling depressed continue suicide ideations but noted to be conversing more, improving hygiene continues to have poor motivation. Patient was found in the room and participating in group noted to be calm and cooperative. Patient states that she is feeling somewhat better today but continues to have mood that is "down" with intermittent suicide ideations last time being this morning which lasted about 30 minutes. When discussed about possibility of discontinuing one-to-one sitter patient states that "I still think I need them". Review of Systems Except as stated in HPI: all other systems reviewed are Neg Mental Status Examination Appearance: Disheveled Consciousness: Alert Orientation: Person, Place, Date/Time Motor Activity: Normal gait Speech: Unremarkable Language: Adequate Fund of Knowledge: Inadequate Attention and Concentration: Adequate Memory: Unremarkable Mood: Other ("better") Affect: Blunt (less so today) Thought Process & Associations: Linear Thought Content: Appropriate Hallucination Type: None, Other Delusion Type: None Suicidal Ideation: Yes Suicidal Plan: No Suicidal Intention: No Homicidal Ideation: No Homicidal Plan: No Homicidal Intention: No Insight: Poor Judgment: Poor Results Vitals/IOs Vital Signs Date Time Temp Pulse Resp B/P (MAP) Pulse Ox O2 Delivery O2 Flow Rate FiO2 11/29/17 06:13 97.8 77 16 110/67 (81) 97 Intake and Output 11/29/17 11/29/17 11/30/17 08:00 16:00 00:00 Intake Total 360 ml Balance 360 ml Assessment & Plan Problem List: (1) Major depressive disorder, recurrent, severe with psychotic features ICD Codes: F33.3 - Major depressive disorder, recurrent, severe with psychotic symptoms Assessment & Plan Patient continues to report depressed mood along with suicide ideations which continue but appear to be intermittent now. Patient continues to be unable to contract for safety patient continues to endorse needing one-to-one sitter. We will continue current treatment. Continue to monitor mood and behavior. We will plan for discontinuation of one-to-one observation soon. Discharge planning in progress. Justification for Cont. Inpt. At risk for further decompensation if at lower level of care. Discharge Planning Return back to mother's residence once psychiatrically stable. Nuno Berger MD Nov 29, 2017 16:59
[2017-11-29 18:08] VITALS: BP 125/89; PULSE 114; RESP 20; TEMP 98.7; O2SAT 97
[2017-11-29] MEDS: REMOVE OLD NICOTINE PATCH T-DERMAL SCH (21:00)
[2017-11-30] MEDS: FREE WATER PO SCH ×6 (04:00→20:19)
[2017-11-30 05:21] VITALS: BP 115/76; PULSE 85; RESP 16; TEMP 97.6; O2SAT 98
[2017-11-30] MEDS: VENLAFAXINE HCL XR 75 MG CAP PO SCH (08:12)
[2017-11-30] MEDS: OLANZapine 5 MG TAB PO SCH ×2 (08:12→20:19)
[2017-11-30] MEDS: NICOTINE 21 MG/24 HR PATCH T-DERMAL SCH (08:13)
--- NOTE | 2017-11-30 11:57 | HHI.PYPN ---
Subjective Chief Complaint: Major depressive disorder, severe with psychotic features Remarks Examined patient for follow-up with RADHA Delvalle present. Reviewed electronic medical record and labs. Discussed case with staff. Patient was observed outside kicking a soccer ball against the wall just prior to interview. Staff reports that she has been more active, participated in some of the group activities, and has been leaving her room for meals. Patient still endorses intermittent thoughts of self-harm throughout the day. She reports the last thought of self-harm was "this morning from the time I got up through breakfast ". When asked to elaborate on these thoughts, patient denied actual plans and stated that there are more "vague or general". She reports that she slept well last night, and ate her breakfast this morning. Her mood is depressed. Her speech is clear, organized, logical. She made eye contact during the beginning of the evaluation however, when the questions got more personal she would no longer make eye contact. She appeared anxious and wrung her hands throughout the assessment. She does report improvement in her mood and at this time rates her depression is a 5 out of 10. She continues to maintain that she has a need for a one-to-one sitter. Mental Status Examination Appearance: Disheveled Consciousness: Alert Orientation: Person, Place, Date/Time Motor Activity: Normal gait Speech: Unremarkable Language: Adequate Fund of Knowledge: Inadequate Attention and Concentration: Adequate Memory: Unremarkable Mood: Other ("better") Affect: Blunt Thought Process & Associations: Linear Thought Content: Appropriate Hallucination Type: None, Other Delusion Type: None Suicidal Ideation: Yes (Reports intermittent "vague and general" thoughts of self-harm throughout the day) Suicidal Plan: No Suicidal Intention: No Homicidal Ideation: No Homicidal Plan: No Homicidal Intention: No Insight: Poor Judgment: Poor Results Vitals/IOs Vital Signs Date Time Temp Pulse Resp B/P (MAP) Pulse Ox O2 Delivery O2 Flow Rate FiO2 11/30/17 05:21 97.6 85 16 115/76 (09) 98 Assessment & Plan Problem List: (1) Major depressive disorder, recurrent, severe with psychotic features ICD Codes: F33.3 - Major depressive disorder, recurrent, severe with psychotic symptoms Assessment & Plan Estimated LOS: Although improvement is noted, patient still presents with a depressed mood and blunted affect. Additionally, she continues to endorse intermittent thoughts of self-harm. Will continue with current therapy until psychiatrically stabilized. Discharge planning is in progress. Justification for Cont. Inpt. This patient would decompensate if placed in a lower level of care. Shelby Morin Nov 30, 2017 11:57
[2017-11-30 17:37] VITALS: BP 116/68; PULSE 97; RESP 18; TEMP 98.3
[2017-11-30] MEDS: REMOVE OLD NICOTINE PATCH T-DERMAL SCH (19:41)
[2017-12-01] MEDS: FREE WATER PO SCH ×6 (03:45→19:36)
[2017-12-01 05:02] VITALS: BP 105/67; PULSE 81; RESP 16; TEMP 97.6; O2SAT 97
[2017-12-01] MEDS: NICOTINE 21 MG/24 HR PATCH T-DERMAL SCH (09:00)
[2017-12-01] MEDS: VENLAFAXINE HCL XR 75 MG CAP PO SCH (09:00)
[2017-12-01] MEDS: OLANZapine 5 MG TAB PO SCH ×2 (10:54→22:09)
--- NOTE | 2017-12-01 11:50 | HHI.PYPN ---
Subjective Chief Complaint: Major depressive disorder, severe with psychotic features Remarks Patient seen for follow-up, chart reviewed. Discussion with nursing staff reported that patient is participating more. Patient was found lying on hospital bed, calm and cooperative. Patient continues to report feeling depressed with intermittent suicidal ideations. Patient states that he continues to have thoughts of harming herself and vague about nuria for safety while on the unit. Discussion with attempting to remove 1:1 sitter was discussed which patient reluctantly agreed to but agreed to alert staff if she felt like harming herself. She denies any perceptual disturbances or delusions. Review of Systems Except as stated in HPI: all other systems reviewed are Neg Mental Status Examination Appearance: Disheveled Consciousness: Alert Orientation: Person, Place, Date/Time Motor Activity: Normal gait Speech: Unremarkable Language: Adequate Fund of Knowledge: Inadequate Attention and Concentration: Adequate Memory: Unremarkable Mood: Other ("better") Affect: Blunt Thought Process & Associations: Linear Thought Content: Appropriate Hallucination Type: None, Other Delusion Type: None Suicidal Ideation: Yes (intermittent) Suicidal Plan: No Suicidal Intention: No Homicidal Ideation: No Homicidal Plan: No Homicidal Intention: No Insight: Poor Judgment: Poor Results Vitals/IOs Vital Signs Date Time Temp Pulse Resp B/P (MAP) Pulse Ox O2 Delivery O2 Flow Rate FiO2 12/01/17 05:02 97.6 81 16 105/67 (80) 97 Intake and Output 12/01/17 12/01/17 12/02/17 08:00 16:00 00:00 Intake Total 360 ml Balance 360 ml Assessment & Plan Problem List: (1) Major depressive disorder, recurrent, severe with psychotic features ICD Codes: F33.3 - Major depressive disorder, recurrent, severe with psychotic symptoms Assessment & Plan Patient continues to endorse feeling depressed along intermittent suicidal ideations. Patient has not attempted to harm herself since admission. Will remove 1:1 sitter but continue with close monitoring and frequent checks for safety. Continue current treatment. Continue to monitor mood and behavior. Discharge planning in progress. Justification for Cont. Inpt. At risk for further decompensation at lower level of care. Discharge Planning Return to mother's residence when psychiatrically stable. Nuno Berger MD Dec 01, 2017 11:50
[2017-12-01] MEDS: REMOVE OLD NICOTINE PATCH T-DERMAL SCH (19:36)
[2017-12-02] MEDS: FREE WATER PO SCH ×5 (04:00→20:00)
[2017-12-02 05:43] VITALS: BP 95/59; PULSE 86; RESP 16; TEMP 97.3; O2SAT 99
[2017-12-02] MEDS: OLANZapine 5 MG TAB PO SCH ×2 (09:00→20:55)
[2017-12-02] MEDS: NICOTINE 21 MG/24 HR PATCH T-DERMAL SCH (09:00)
[2017-12-02] MEDS: VENLAFAXINE HCL XR 75 MG CAP PO SCH (09:00)
--- NOTE | 2017-12-02 12:56 | HHI.PYPN ---
Subjective Chief Complaint: Major depressive disorder, severe with psychotic features Remarks Patient was seen and case discussed with nursing. Patient remains depressed mood, flat affect, psychomotor retardation, poor eye contact. She is internally preoccupied and says that she is feeling hopeless and thinking of ways to hurt herself once outside the hospital. "There are no ways to hurt herself here." Mental Status Examination Appearance: Disheveled Consciousness: Alert Orientation: Person, Place, Date/Time Motor Activity: Normal gait Speech: Unremarkable Language: Adequate Fund of Knowledge: Inadequate Attention and Concentration: Adequate Memory: Unremarkable Mood: Other ("better") Affect: Blunt Thought Process & Associations: Linear Thought Content: Appropriate Hallucination Type: None, Other Delusion Type: None Suicidal Ideation: Yes (intermittent) Suicidal Plan: Yes (thinking of ways) Suicidal Intention: No Homicidal Ideation: No Homicidal Plan: No Homicidal Intention: No Insight: Poor Judgment: Poor Results Vitals/IOs Vital Signs Date Time Temp Pulse Resp B/P (MAP) Pulse Ox O2 Delivery O2 Flow Rate FiO2 12/02/17 05:43 97.3 86 16 95/59 (71) 99 Intake and Output 12/02/17 12/02/17 12/03/17 08:00 16:00 00:00 Intake Total 550 ml Output Total 550 ml Balance 0 ml Assessment & Plan Problem List: (1) Major depressive disorder, recurrent, severe with psychotic features ICD Codes: F33.3 - Major depressive disorder, recurrent, severe with psychotic symptoms Assessment & Plan We'll resume one-to-one Justification for Cont. Inpt. Patient would decompensate in a less restrictive setting Edmund Holland DO Dec 02, 2017 12:56
[2017-12-02 18:12] VITALS: BP 131/86; PULSE 99; RESP 18; TEMP 97.7; O2SAT 99
[2017-12-02] MEDS: REMOVE OLD NICOTINE PATCH T-DERMAL SCH (20:06)
[2017-12-03] MEDS: FREE WATER PO SCH ×6 (04:00→20:00)
[2017-12-03 04:50] VITALS: BP 94/58; PULSE 82; RESP 16; TEMP 97.4; O2SAT 98
[2017-12-03] MEDS: NICOTINE 21 MG/24 HR PATCH T-DERMAL SCH (09:00)
[2017-12-03] MEDS: VENLAFAXINE HCL XR 75 MG CAP PO SCH (09:02)
[2017-12-03] MEDS: OLANZapine 5 MG TAB PO SCH ×2 (09:02→20:52)
--- NOTE | 2017-12-03 11:33 | HHI.PYPN ---
Subjective Chief Complaint: Major depressive disorder, severe with psychotic features Remarks Patient was seen and case discussed with nursing. continues on a one-to- one. Patient says that she continues to have suicidal ideation with various plans. One plan included breaking a light bulb on the unit using it to cut. We reviewed the safety plan, one-to-one heard the plan. Poor eye contact, flat affect. However, patient did go outside says she enjoyed about their. Had a visit from her mom yesterday. Suicidal ideation "comes and goes." Mental Status Examination Appearance: Disheveled Consciousness: Alert Orientation: Person, Place, Date/Time Motor Activity: Normal gait Speech: Unremarkable Language: Adequate Fund of Knowledge: Inadequate Attention and Concentration: Adequate Memory: Unremarkable Mood: Other ("better") Affect: Flat Thought Process & Associations: Linear Thought Content: Appropriate Hallucination Type: None, Other Delusion Type: None Suicidal Ideation: Yes (intermittent) Suicidal Plan: Yes (cut with a light bulb) Suicidal Intention: No Homicidal Ideation: No Homicidal Plan: No Homicidal Intention: No Insight: Poor Judgment: Poor Results Vitals/IOs Vital Signs Date Time Temp Pulse Resp B/P (MAP) Pulse Ox O2 Delivery O2 Flow Rate FiO2 12/03/17 04:50 97.4 82 16 94/58 (70 98 Assessment & Plan Problem List: (1) Major depressive disorder, recurrent, severe with psychotic features ICD Codes: F33.3 - Major depressive disorder, recurrent, severe with psychotic symptoms Assessment & Plan Continue one-to-one Justification for Cont. Inpt. Patient will decompensate in a less restrictive setting Edmudn Holland DO Dec 03, 2017 11:33
[2017-12-03 16:37] VITALS: BP 130/95; PULSE 100; RESP 18; TEMP 97.6; O2SAT 98
[2017-12-03] MEDS: REMOVE OLD NICOTINE PATCH T-DERMAL SCH (20:09)
[2017-12-04] MEDS: FREE WATER PO SCH ×6 (04:00→20:00)
[2017-12-04 05:23] VITALS: BP 104/65; PULSE 87; RESP 16; TEMP 97.6; O2SAT 99
[2017-12-04] MEDS: NICOTINE 21 MG/24 HR PATCH T-DERMAL SCH (08:38)
[2017-12-04] MEDS: OLANZapine 5 MG TAB PO SCH ×2 (08:38→20:18)
[2017-12-04] MEDS: VENLAFAXINE HCL XR 75 MG CAP PO SCH (08:38)
--- NOTE | 2017-12-04 15:57 | PD.TTN ---
Patient Problems 1. Discharge planning 2. Medication compliance 3. Knowledge deficit 4. Lack of coping skills Progress Toward Goals Provider Present: Dr. Meghann Berger Provider Input: 12/04/17 Nurse Sandeep Practiciner covering for Dr Berger: unsure how to handle the 1:1 and patient continues stating same issues and feels she is not improving although she appears much better and keeps saying "my meds are not working" 11/29/17 Appears to be improving. STill some suicidal ideations. 11/27/17will re-assess today and appears to start responding and little progress with talking 11/22/17 Doctor overheard she spoke Amharic to staff and she wrote a letter 11/20/17 patient remains behavior problem and unpredictable, suggestion with team to remove her blanket and push engagement 11/08/17 majorly depressed and currently not eating, is on 2600 now and if in need for infusions she may need return to the 4th floor, she is in need for some medication adjustment and time to respond them 11/13/17 Patient is medication complaint. Medication will be added. Patient is selectively mute, depressed. Nurse(s) Input: 11/13/17 Patient's nurse reports seclusive, affect flat. Patient presents disheveled, mute, depressed. Is not eating, lying in bed. Psychiatric Counselors Present: Lyudmila Velasquez LCSW Psych Therapist Input: 12/04/17 patient is still very distant and reacts well with mother present and very close and overly attached during visits mother has called and left notes in box, patient talked more today and is not sure why she is suicidal - denies pressure to hurt self to relieve pressure- that it is more depression- engaged more in therapy today and discussed feelings deeper, she denies worthlesness but feels hopeless and helpless but mostly answer with :"I dont know" overall more eye contact and more talking 11/29/17 talks now, bad visit with mom, overly attached to mother, talks more about feelings 11/27/17 she is reported with more talking and interacting, spoke to this counselor this afternoon, but limited and direct and about her wishes only such as wanting her blanket -will meet with mother and patient together and discuss her progress 11/22/17 remains mute to therapist she left a note for doctor about her room mate and her wishes about the room mate 11/20/18 still mute and not making any eye contact, no cooperation or communication possible, looks away, no responds with physical expressions either, refuses therapist completely mother wants to meet and discuss patients outpatient options and continuum of care in person, will arrange for this week 11/08/17 unstable, needs stablization, no talking, remains mute, withdrawn, still on a 1:1 and not engaging , no eye contact 11/13/17 Patient found lying in her bed with a 1:1. Patient is mute making poor eye contact. Patient has not eaten since yesterday and refused her breakfast this morning. Patient presents depressed, mute, non compliant with medication. Group Spec/RT/OT/GUAMAN Present: DENIZ Lozano, Kade Fu, OT, Tato Gomez, DENIZ Group Spec/RT/OT/GUAMAN Input: 12/04/17 attends select groups but withdrawn a lot and more outside of her room 11/29/17 Pt. attends 50% of groups, pt. talks selectively 11/27/17 progess in participation during exercise group , plays basketball and came to [employer] but still seclusvie 11/22/17minimal progess in group activities , participates in basketball 11/20/17 dos not leave her room to attend any groups 11/08/17 does not attend any groups 11/13/17 Patient is seclusive and does not attend any groups. Lyudmila VelasquezW Dec 04, 2017 15:57
--- NOTE | 2017-12-04 17:07 | HHI.PYPN ---
Subjective Chief Complaint: Major depressive disorder, severe with psychotic features Remarks Reviewed electronic medical record, labs, and discussed case with staff. Follow -up evaluation occurred in patient's room with nurse and sitter present. Staff advises patient has been eating, leaving her room, and performing ADLs, as well as being compliant with medications. When asked how she feels patient states "fine". However she does endorse continuing intermittent thoughts of suicide. She states that her last episode was "when I was in the shower this morning". She denies homicidal ideation, visual or auditory hallucinations. She does not appear delusional. She states that she is sleeping and eating well. When asked why she felt she needed the one-to-one sitter she responded, "I am afraid I will hurt myself if I do not have one". Staff advised patient's mother has been a frequent caller and has expressed concern that her daughter is not receiving the right medication and needs to have a one-to-one sitter. Mental Status Examination Appearance: Disheveled Consciousness: Alert Orientation: Person, Place, Date/Time Motor Activity: Other (In bed) Speech: Unremarkable Language: Adequate Fund of Knowledge: Inadequate Attention and Concentration: Adequate Memory: Unremarkable Mood: Other ("Fine") Affect: Flat Thought Process & Associations: Linear Thought Content: Appropriate Hallucination Type: None, Other Delusion Type: None Suicidal Ideation: Yes (intermittent) Suicidal Plan: Yes (cut with a light bulb) Suicidal Intention: No Homicidal Ideation: No Homicidal Plan: No Homicidal Intention: No Insight: Poor Judgment: Poor Results Vitals/IOs Vital Signs Date Time Temp Pulse Resp B/P (MAP) Pulse Ox O2 Delivery O2 Flow Rate FiO2 12/04/17 05:23 97.6 87 16 104/65 (78) 99 Intake and Output 12/04/17 12/04/17 12/05/17 08:00 16:00 00:00 Intake Total 800 ml Balance 800 ml Assessment & Plan Problem List: (1) Major depressive disorder, recurrent, severe with psychotic features ICD Codes: F33.3 - Major depressive disorder, recurrent, severe with psychotic symptoms Assessment & Plan Estimated LOS: Patient continues to endorse intermittent suicidal ideation. Will continue with treatment plan at this time. Justification for Cont. Inpt. Placing patient in a lower level of care at this time would likely result in decompensation. Shelby Morin Dec 04, 2017 17:07
[2017-12-04] MEDS: REMOVE OLD NICOTINE PATCH T-DERMAL SCH (21:00)
[2017-12-05] MEDS: FREE WATER PO SCH ×6 (04:00→20:00)
[2017-12-05 05:55] VITALS: BP 101/65; PULSE 85; RESP 16; TEMP 97.8
[2017-12-05] MEDS: OLANZapine 5 MG TAB PO SCH ×2 (08:00→20:27)
[2017-12-05] MEDS: NICOTINE 21 MG/24 HR PATCH T-DERMAL SCH (08:00)
[2017-12-05] MEDS: VENLAFAXINE HCL XR 75 MG CAP PO SCH (08:00)
--- NOTE | 2017-12-05 13:45 | HHI.PYPN ---
Subjective Chief Complaint: Major depressive disorder, severe with psychotic features Remarks Patient was seen today for psychiatric reevaluation. Patient was found sleeping , but easily arousable. At the beginning of the interview patient was oppositional and resistant, but she was sensitive to redirection and reassurance. She reports feeling okay today, however, the patient does report having suicidal thoughts and a general wanting to . Patient stated that she doesn't know the reason she wants to "I just want to ", in the other hand the patient was able to sustain a logical, coherent and relevant conversation with me. She told me that her plans were to finish college and become a middle school sports coach. She says that her dream is to go to the [employer] next year. Mental Status Examination Appearance: Disheveled Consciousness: Alert Orientation: Person, Place, Date/Time Motor Activity: Other (In bed) Speech: Unremarkable Language: Adequate Fund of Knowledge: Inadequate Attention and Concentration: Adequate Memory: Unremarkable Mood: Other ("Fine") Affect: Flat Thought Process & Associations: Linear Thought Content: Appropriate Hallucination Type: None, Other Delusion Type: None Suicidal Ideation: Yes (intermittent) Suicidal Plan: Yes (cut with a light bulb) Suicidal Intention: No Homicidal Ideation: No Homicidal Plan: No Homicidal Intention: No Insight: Poor Judgment: Poor Results Vitals/IOs Vital Signs Date Time Temp Pulse Resp B/P (MAP) Pulse Ox O2 Delivery O2 Flow Rate FiO2 12/05/17 05:55 97.8 85 16 101/65 (77) 12/04/17 05:23 99 Assessment & Plan Problem List: (1) Major depressive disorder, recurrent, severe with psychotic features ICD Codes: F33.3 - Major depressive disorder, recurrent, severe with psychotic symptoms Assessment & Plan: Patient continues to endorse suicidal ideation, even though she seems to be ambivalent about this. Continue current psychotropic regimen. Brief supportive psychotherapy provided. Assessment & Plan Estimated LOS: days Justification for Cont. Inpt. Patient has an elevated risk to decompensate at a lower level of care. Abhay Mendoza MD Dec 05, 2017 13:45
[2017-12-05 18:02] VITALS: BP 130/72; PULSE 100; RESP 16; TEMP 98; O2SAT 98
[2017-12-05] MEDS: REMOVE OLD NICOTINE PATCH T-DERMAL SCH (21:00)
[2017-12-06] MEDS: FREE WATER PO SCH ×6 (04:00→20:13)
[2017-12-06 05:30] VITALS: BP 103/63; PULSE 84; RESP 18; TEMP 98
[2017-12-06] MEDS: NICOTINE 21 MG/24 HR PATCH T-DERMAL SCH (09:00)
[2017-12-06] MEDS: OLANZapine 5 MG TAB PO SCH (09:15)
[2017-12-06] MEDS: VENLAFAXINE HCL XR 75 MG CAP PO SCH (09:15)
--- NOTE | 2017-12-06 13:14 | HHI.PYPN ---
Subjective Chief Complaint: Major depressive disorder, severe with psychotic features Remarks Patient was seen today for psychiatric reevaluation. She was calm, cooperative and pleasant. The patient says that she has been feeling okay, reports good sleep, she reports good level of appetite, okay level of energy. The patient is logical, she is coherent and relevant. 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 Patient says that she wants to do better, "but I don't know how to control my thoughts". He continues to report persistent intrusive suicidal thoughts "and I am very scared of myself all of this and environment". Review of Systems Except as stated in HPI: all other systems reviewed are Neg Mental Status Examination Appearance: Disheveled Consciousness: Alert Orientation: Person, Place, Date/Time Motor Activity: Other (In bed) Speech: Unremarkable Language: Adequate Fund of Knowledge: Inadequate Attention and Concentration: Adequate Memory: Unremarkable Mood: Other ("Fine") Affect: Flat Thought Process & Associations: Linear Thought Content: Appropriate Hallucination Type: None, Other Delusion Type: None Suicidal Ideation: Yes (intermittent) Suicidal Plan: Yes (cut with a light bulb) Suicidal Intention: No Homicidal Ideation: No Homicidal Plan: No Homicidal Intention: No Insight: Poor Judgment: Poor Results Vitals/IOs Vital Signs Date Time Temp Pulse Resp B/P (MAP) Pulse Ox O2 Delivery O2 Flow Rate FiO2 12/06/17 05:30 98.0 84 18 103/63 (76) 12/05/17 18:02 98 Intake and Output 12/06/17 12/06/17 12/07/17 08:00 16:00 00:00 Intake Total 240 ml Balance 240 ml Assessment & Plan Problem List: (1) Major depressive disorder, recurrent, severe with psychotic features ICD Codes: F33.3 - Major depressive disorder, recurrent, severe with psychotic symptoms Assessment & Plan: Today we'll increase olanzapine to 7.5 mg twice a day for intrusive suicidal thoughts. Assessment & Plan Estimated LOS: days Justification for Cont. Inpt. Patient needs to continue psychiatric hospitalization for safety and stabilization. Abhay Mendoza MD Dec 06, 2017 13:14
[2017-12-06 17:47] VITALS: BP 110/77; PULSE 112; RESP 18; TEMP 98.1; O2SAT 99
[2017-12-06] MEDS: OLANZapine 2.5 MG TAB PO SCH (20:13)
[2017-12-06] MEDS: REMOVE OLD NICOTINE PATCH T-DERMAL SCH (20:44)
[2017-12-07] MEDS: FREE WATER PO SCH ×6 (04:00→19:58)
[2017-12-07 06:02] VITALS: BP 98/61; PULSE 87; RESP 16; TEMP 97.5; O2SAT 97
[2017-12-07] MEDS: OLANZapine 2.5 MG TAB PO SCH ×2 (08:55→20:23)
[2017-12-07] MEDS: VENLAFAXINE HCL XR 75 MG CAP PO SCH (08:55)
[2017-12-07] MEDS: NICOTINE 21 MG/24 HR PATCH T-DERMAL SCH (08:56)
--- NOTE | 2017-12-07 12:12 | HHI.PYPN ---
Subjective Chief Complaint: Major depressive disorder, severe with psychotic features Remarks Patient was seen today for psychiatric reevaluation. She was found in the recreational area of the unit playing basketball. Patient was calm, cooperative pleasant today. Patient reports that she has been feeling much better since yesterday. She says that for the first time she has not been having those persistent obsessive suicidal thoughts. However, at some point during the evaluation she was looking to the tress in the yard and says that she cannot look threes without thinking that it would be a good place for her to hang herself. Patient reports that she is totally controlled by these suicidal thoughts, but since yesterday she has been doing better. She has been compliant with medications,no significant side effects. Review of Systems Constitutional: DENIES: Diaphoretic episodes, Fatigue, Fever, Weight gain, Weight loss, Chills, Dizziness, Change in appetite, Night Sweats Endocrine: DENIES: Abnorml menstrual pattern, Heat/cold intolerance, Polydipsia , Polyuria, Polyphagia Eyes: DENIES: Blurred vision, Diplopia, Eye inflammation, Eye pain, Vision loss , Photosensitivity, Double Vision Ears, nose, mouth, throat: DENIES: Tinnitus, Hearing loss, Vertigo, Nasal discharge, Oral lesions, Throat pain, Hoarseness, Ear Pain, Running Nose, Epistaxis, Sinus Pain, Toothache, Odynophagia Respiratory: DENIES: Apneas, Cough, Snoring, Wheezing, Hemoptysis, Sputum production, Shortness of breath Cardiovascular: DENIES: Chest pain, Palpitations, Syncope, Dyspnea on Exertion , PND, Lower Extremity Edema, Orthopnea, Claudication Gastrointestinal: DENIES: Abdominal pain, Black stools, Bloody stools, Constipation, Diarrhea, Nausea, Vomiting, Difficulty Swallowing, Anorexia Genitourinary: DENIES: Abnormal vaginal bleeding, Dysmenorrhea, Dyspareunia, Sexual dysfunction, Urinary frequency, Urinary incontinence, Urgency, Hematuria , Dysuria, Nocturia, Vaginal discharge Musculoskeletal: DENIES: Joint pain, Muscle aches, Stiffness, Joint Swelling, Back pain, Neck pain Integumentary: DENIES: Abnormal pigmentation, Pruritus, Rash, Nail changes, Breast masses, Breast skin changes, Nipple discharge Hematologic/lymphatic: DENIES: Bruising, Lymphadenopathy Immunologic/allergic: DENIES: Eczema, Urticaria Neurologic: DENIES: Abnormal gait, Headache, Localized weakness, Paresthesias, Seizures, Speech Problems, Tremor, Poor Balance Psychiatric: COMPLAINS OF: Suicidal Ideation, DENIES: Anxiety, Confusion, Mood changes, Depression, Hallucinations, Agitation, Homicidal Ideation, Delusions Mental Status Examination Appearance: Disheveled Consciousness: Alert Orientation: Person, Place, Date/Time Motor Activity: Other (In bed) Speech: Unremarkable Language: Adequate Fund of Knowledge: Inadequate Attention and Concentration: Adequate Memory: Unremarkable Mood: Other ("Fine") Affect: Flat Thought Process & Associations: Linear Thought Content: Appropriate Hallucination Type: None, Other Delusion Type: None Suicidal Ideation: Yes (intermittent) Suicidal Plan: Yes (cut with a light bulb) Suicidal Intention: No Homicidal Ideation: No Homicidal Plan: No Homicidal Intention: No Insight: Poor Judgment: Poor Results Vitals/IOs Vital Signs Date Time Temp Pulse Resp B/P (MAP) Pulse Ox O2 Delivery O2 Flow Rate FiO2 12/07/17 06:02 97.5 87 16 98/61 (73) 97 Intake and Output 12/07/17 12/07/17 12/08/17 08:00 16:00 00:00 Intake Total 240 ml 960 ml Balance 240 ml 960 ml Assessment & Plan Problem List: (1) Major depressive disorder, recurrent, severe with psychotic features ICD Codes: F33.3 - Major depressive disorder, recurrent, severe with psychotic symptoms Assessment & Plan: Patient reports some improvement in the perseverations of her suicidal thoughts, Will continue current psychiatric medications. Brief supportive psychotherapy provided. Assessment & Plan Estimated LOS: days Justification for Cont. Inpt. Patient has an elevated risk to decompensate at the lower level of care. Abhay Mendoza MD Dec 07, 2017 12:12
[2017-12-07 17:41] VITALS: BP 137/68; PULSE 109; RESP 18; TEMP 97.8; O2SAT 99
[2017-12-07] MEDS: REMOVE OLD NICOTINE PATCH T-DERMAL SCH (21:00)
[2017-12-08] MEDS: FREE WATER PO SCH ×6 (03:40→20:00)
[2017-12-08 05:17] VITALS: BP 128/68; PULSE 64; RESP 16; TEMP 97.8; O2SAT 96
[2017-12-08] MEDS: NICOTINE 21 MG/24 HR PATCH T-DERMAL SCH (09:00)
[2017-12-08] MEDS: VENLAFAXINE HCL XR 75 MG CAP PO SCH (09:30)
[2017-12-08] MEDS: OLANZapine 2.5 MG TAB PO SCH ×2 (09:30→21:02)
--- NOTE | 2017-12-08 13:12 | HHI.PYPN ---
Subjective Chief Complaint: Major depressive disorder, severe with psychotic features Remarks The patient was seen today briefly for psychiatric reevaluation. Patient is found sleeping, she is arousable, but during the interview continues to fall asleep. She reports feeling better, reports decreased suicidal thoughts. She says that she has been integrated with activities, taking her medications, no significant side effects. Review of Systems Except as stated in HPI: all other systems reviewed are Neg Mental Status Examination Appearance: Disheveled Consciousness: Alert Orientation: Person, Place, Date/Time Motor Activity: Other (In bed) Speech: Unremarkable Language: Adequate Fund of Knowledge: Inadequate Attention and Concentration: Adequate Memory: Unremarkable Mood: Other ("Fine") Affect: Flat Thought Process & Associations: Linear Thought Content: Appropriate Hallucination Type: None, Other Delusion Type: None Suicidal Ideation: Yes (intermittent) Suicidal Plan: Yes (cut with a light bulb) Suicidal Intention: No Homicidal Ideation: No Homicidal Plan: No Homicidal Intention: No Insight: Poor Judgment: Poor Results Vitals/IOs Vital Signs Date Time Temp Pulse Resp B/P (MAP) Pulse Ox O2 Delivery O2 Flow Rate FiO2 12/08/17 05:17 97.8 64 16 128/68 (88) 96 Intake and Output 12/08/17 12/08/17 12/09/17 08:00 16:00 00:00 Intake Total 480 ml Balance 480 ml Assessment & Plan Problem List: (1) Major depressive disorder, recurrent, severe with psychotic features ICD Codes: F33.3 - Major depressive disorder, recurrent, severe with psychotic symptoms Assessment & Plan Estimated LOS: days Justification for Cont. Inpt. Patient needs to continue psychiatric hospitalization for stabilization and safety. Continue current psychotropic regimen. Abhay Mendoza MD Dec 08, 2017 13:12
[2017-12-08 18:05] VITALS: BP 119/69; PULSE 117; RESP 16; TEMP 98
[2017-12-08] MEDS: REMOVE OLD NICOTINE PATCH T-DERMAL SCH (20:12)
[2017-12-09] MEDS: FREE WATER PO SCH ×6 (04:00→20:00)
[2017-12-09 06:00] VITALS: BP 110/65; PULSE 94; RESP 15; TEMP 97.9; O2SAT 98
[2017-12-09] MEDS: VENLAFAXINE HCL XR 75 MG CAP PO SCH (08:09)
[2017-12-09] MEDS: OLANZapine 2.5 MG TAB PO SCH ×2 (08:10→21:23)
[2017-12-09] MEDS: NICOTINE 21 MG/24 HR PATCH T-DERMAL SCH (09:00)
--- NOTE | 2017-12-09 15:18 | HHI.PYPN ---
Subjective Chief Complaint: Major depressive disorder, severe with psychotic features Remarks Pt seen and discussed with staff. She has been eating and drinking and taking medications. She went out for unit activity today. No aggression or agitation. She reports decreased suicidal ideations. No HI. Mental Status Examination Appearance: Disheveled Consciousness: Alert Orientation: Person, Place, Date/Time Motor Activity: Other (In bed) Speech: Unremarkable Language: Adequate Fund of Knowledge: Inadequate Attention and Concentration: Adequate Memory: Unremarkable Mood: Other ("Fine") Affect: Flat Thought Process & Associations: Linear Thought Content: Appropriate Hallucination Type: None, Other Delusion Type: None Suicidal Ideation: Yes (intermittent) Suicidal Plan: No Suicidal Intention: No Homicidal Ideation: No Homicidal Plan: No Homicidal Intention: No Insight: Poor Judgment: Poor Results Vitals/IOs Vital Signs Date Time Temp Pulse Resp B/P (MAP) Pulse Ox O2 Delivery O2 Flow Rate FiO2 12/09/17 06:00 97.9 94 15 110/65 (80) 98 Intake and Output 12/09/17 12/09/17 12/10/17 08:00 16:00 00:00 Intake Total 1100 ml Balance 1100 ml Assessment & Plan Problem List: (1) Major depressive disorder, recurrent, severe with psychotic features ICD Codes: F33.3 - Major depressive disorder, recurrent, severe with psychotic symptoms Assessment & Plan Pt improving. Continue current tx plan. Estimated LOS: days Justification for Cont. Inpt. risk of decompensation Fatimah Foote MD Dec 09, 2017 15:18
[2017-12-09 18:02] VITALS: BP 139/79; PULSE 116; RESP 18; TEMP 97.6; O2SAT 98
[2017-12-09] MEDS: REMOVE OLD NICOTINE PATCH T-DERMAL SCH (20:18)
[2017-12-10] MEDS: FREE WATER PO SCH ×6 (04:00→20:00)
[2017-12-10 06:00] VITALS: BP 113/66; PULSE 98; RESP 17; TEMP 98.2; O2SAT 99
[2017-12-10] MEDS: OLANZapine 2.5 MG TAB PO SCH ×2 (08:13→20:58)
[2017-12-10] MEDS: VENLAFAXINE HCL XR 75 MG CAP PO SCH (08:13)
[2017-12-10] MEDS: NICOTINE 21 MG/24 HR PATCH T-DERMAL SCH (09:00)
--- NOTE | 2017-12-10 15:48 | HHI.PYPN ---
Subjective Chief Complaint: Major depressive disorder, severe with psychotic features Remarks Pt seen and discussed with staff. She has been more talkative today and has been out of room more. She reports intermittent SI today that has lessened. Mental Status Examination Appearance: Disheveled Consciousness: Alert Orientation: Person, Place, Date/Time Motor Activity: Other (In bed) Speech: Unremarkable Language: Adequate Fund of Knowledge: Adequate Attention and Concentration: Adequate Memory: Unremarkable Mood: Other ("Fine") Affect: Flat Thought Process & Associations: Linear Thought Content: Appropriate Hallucination Type: None, Other Delusion Type: None Suicidal Ideation: Yes (intermittent) Suicidal Plan: No Suicidal Intention: No Homicidal Ideation: No Homicidal Plan: No Homicidal Intention: No Insight: Poor Judgment: Poor Results Vitals/IOs Vital Signs Date Time Temp Pulse Resp B/P (MAP) Pulse Ox O2 Delivery O2 Flow Rate FiO2 12/10/17 06:00 98.2 98 17 113/66 (82) 99 Assessment & Plan Problem List: (1) Major depressive disorder, recurrent, severe with psychotic features ICD Codes: F33.3 - Major depressive disorder, recurrent, severe with psychotic symptoms Assessment & Plan Continue current tx plan. Estimated LOS: days Justification for Cont. Inpt. risk of decompensation Fatimah Foote MD Dec 10, 2017 15:48
[2017-12-10 16:57] VITALS: BP 143/78; PULSE 102; RESP 18; TEMP 97.6; O2SAT 100
[2017-12-10] MEDS: REMOVE OLD NICOTINE PATCH T-DERMAL SCH (20:04)
[2017-12-11] MEDS: FREE WATER PO SCH ×6 (04:00→20:00)
[2017-12-11 05:45] VITALS: BP 84/47; PULSE 88; RESP 17; TEMP 97.5; O2SAT 99
[2017-12-11] MEDS: VENLAFAXINE HCL XR 75 MG CAP PO SCH (08:44)
[2017-12-11] MEDS: OLANZapine 2.5 MG TAB PO SCH ×2 (08:45→21:24)
[2017-12-11] MEDS: NICOTINE 21 MG/24 HR PATCH T-DERMAL SCH (08:46)
--- NOTE | 2017-12-11 12:11 | HHI.PYPN ---
Subjective Chief Complaint: Major depressive disorder, severe with psychotic features Remarks Patient was seen today for psychiatric reevaluation. Notes from week end psychiatry is reviewed. Psychotic evaluation today she is calm, cooperative and pleasant. She reports that during the weekend she has been feeling depressed on and off. sedated due to the medications. But her intrusive thoughts about suicidality definitely decreasing. Today she describes a good mood, she denies suicidal intentions, oriented 3, compliant with medications, no significant side effects. Mental Status Examination Appearance: Disheveled Consciousness: Alert Orientation: Person, Place, Date/Time Motor Activity: Other (In bed) Speech: Unremarkable Language: Adequate Fund of Knowledge: Adequate Attention and Concentration: Adequate Memory: Unremarkable Mood: Other ("Fine") Affect: Flat Thought Process & Associations: Linear Thought Content: Appropriate Hallucination Type: None, Other Delusion Type: None Suicidal Ideation: Yes (intermittent) Suicidal Plan: No Suicidal Intention: No Homicidal Ideation: No Homicidal Plan: No Homicidal Intention: No Insight: Poor Judgment: Poor Results Vitals/IOs Vital Signs Date Time Temp Pulse Resp B/P (MAP) Pulse Ox O2 Delivery O2 Flow Rate FiO2 12/11/17 05:45 97.5 88 17 84/47 (59) 99 Intake and Output 12/11/17 12/11/17 12/12/17 08:00 16:00 00:00 Intake Total 200 ml Balance 200 ml Assessment & Plan Problem List: (1) Major depressive disorder, recurrent, severe with psychotic features ICD Codes: F33.3 - Major depressive disorder, recurrent, severe with psychotic symptoms Assessment & Plan: Extensive supportive psychotherapy. Patient does not need to be one-to-one sitter. Assessment & Plan Estimated LOS: days Justification for Cont. Inpt. Patient has an elevated risk to decompensate at a lower level of care. She does not need a sitter. Abhay Mendoza MD Dec 11, 2017 12:11
[2017-12-11 15:24] VITALS: BP 109/69; PULSE 97; RESP 18; TEMP 98.6; O2SAT 98
[2017-12-11] MEDS: REMOVE OLD NICOTINE PATCH T-DERMAL SCH (21:00)
[2017-12-12] MEDS: FREE WATER PO SCH ×6 (04:00→20:00)
[2017-12-12 06:28] VITALS: BP 89/51; PULSE 96; RESP 16; TEMP 98; O2SAT 98
[2017-12-12] MEDS: VENLAFAXINE HCL XR 75 MG CAP PO SCH (08:14)
[2017-12-12] MEDS: OLANZapine 2.5 MG TAB PO SCH ×2 (08:15→21:02)
[2017-12-12] MEDS: NICOTINE 21 MG/24 HR PATCH T-DERMAL SCH (08:17)
--- NOTE | 2017-12-12 14:15 | HHI.PYPN ---
Subjective Chief Complaint: Major depressive disorder, severe with psychotic features Remarks The patient is seen for psychiatric reevaluation. She was found sleeping, bur arausable She reports ok mood, but seems to be very sleepy. She reports episodic SI, but not intentions. As per reports she has been interacting appropriately in the unit, no agitation or aggresome behavior. Mental Status Examination Appearance: Disheveled Consciousness: Alert Orientation: Person, Place, Date/Time Motor Activity: Other (In bed) Speech: Unremarkable Language: Adequate Fund of Knowledge: Adequate Attention and Concentration: Adequate Memory: Unremarkable Mood: Other ("Fine") Affect: Flat Thought Process & Associations: Linear Thought Content: Appropriate Hallucination Type: None, Other Delusion Type: None Suicidal Ideation: Yes (intermittent) Suicidal Plan: No Suicidal Intention: No Homicidal Ideation: No Homicidal Plan: No Homicidal Intention: No Insight: Poor Judgment: Poor Results Vitals/IOs Vital Signs Date Time Temp Pulse Resp B/P (MAP) Pulse Ox O2 Delivery O2 Flow Rate FiO2 12/12/17 06:28 98.0 96 16 89/51 (64) 98 Intake and Output 12/12/17 12/12/17 12/13/17 08:00 16:00 00:00 Intake Total 200 ml Balance 200 ml Assessment & Plan Problem List: (1) Major depressive disorder, recurrent, severe with psychotic features ICD Codes: F33.3 - Major depressive disorder, recurrent, severe with psychotic symptoms Assessment & Plan Estimated LOS: days Justification for Cont. Inpt. Patient needs to continue psychiatric stabilization. Abhay Mendoza MD Dec 12, 2017 14:15
[2017-12-12 18:11] VITALS: BP 133/84; PULSE 117; RESP 18; TEMP 97.4; O2SAT 99
[2017-12-12] MEDS: REMOVE OLD NICOTINE PATCH T-DERMAL SCH (21:00)
[2017-12-13] MEDS: FREE WATER PO SCH ×6 (04:00→20:00)
[2017-12-13 05:59] VITALS: BP 109/73; PULSE 95; RESP 18; TEMP 98; O2SAT 97
[2017-12-13] MEDS: VENLAFAXINE HCL XR 75 MG CAP PO SCH (08:36)
[2017-12-13] MEDS: NICOTINE 21 MG/24 HR PATCH T-DERMAL SCH (08:36)
[2017-12-13] MEDS: OLANZapine 2.5 MG TAB PO SCH ×2 (08:36→21:03)
[2017-12-13] MEDS: REMOVE OLD NICOTINE PATCH T-DERMAL SCH (08:37)
--- NOTE | 2017-12-13 14:11 | PD.TTN ---
Patient Problems 1. Discharge planning 2. Medication compliance 3. Knowledge deficit 4. Lack of coping skills Progress Toward Goals Provider Present: Dr. Vidhya Atwood, Dr. Meghann Berger Provider Input: 12/13/17 patient was followed by Dr Mendoza last week as of today Dr Atwodo will follow her but he has not met her, She is off the 1:1 as of today 12/04/17 Sandeep, Practiciner covering for Dr Berger: unsure how to handle the 1:1 and patient continues stating same issues and feels she is not improving although she appears much better and keeps saying "my meds are not working" 11/29/17 Appears to be improving. STill some suicidal ideations. 11/27/17will re-assess today and appears to start responding and little progress with talking 11/22/17 Doctor overheard she spoke Yoruba to staff and she wrote a letter 11/20/17 patient remains behavior problem and unpredictable, suggestion with team to remove her blanket and push engagement 11/08/17 majorly depressed and currently not eating, is on 2600 now and if in need for infusions she may need return to the 4th floor, she is in need for some medication adjustment and time to respond them 11/13/17 Patient is medication complaint. Medication will be added. Patient is selectively mute, depressed. Nurse(s) Input: 11/13/17 Patient's nurse reports seclusive, affect flat. Patient presents disheveled, mute, depressed. Is not eating, lying in bed. Psychiatric Counselors Present: Lyudmila Velasquez LCSW Psych Therapist Input: 12/13/17 overall appears more out on unit and talking with staff and taking her showers without any direction, she has spoken more with counselor but still appears to avoid talking about "deep feelings" avoiding therapeutic topics, offered work sheets for coping and emotional topics 12/04/17 patient is still very distant and reacts well with mother present and very close and overly attached during visits mother has called and left notes in box, patient talked more today and is not sure why she is suicidal - denies pressure to hurt self to relieve pressure- that it is more depression- engaged more in therapy today and discussed feelings deeper, she denies worthlesness but feels hopeless and helpless but mostly answer with :"I dont know" overall more eye contact and more talking 11/29/17 talks now, bad visit with mom, overly attached to mother, talks more about feelings 11/27/17 she is reported with more talking and interacting, spoke to this counselor this afternoon, but limited and direct and about her wishes only such as wanting her blanket -will meet with mother and patient together and discuss her progress 11/22/17 remains mute to therapist she left a note for doctor about her room mate and her wishes about the room mate 11/20/18 still mute and not making any eye contact, no cooperation or communication possible, looks away, no responds with physical expressions either, refuses therapist completely mother wants to meet and discuss patients outpatient options and continuum of care in person, will arrange for this week 11/08/17 unstable, needs stablization, no talking, remains mute, withdrawn, still on a 1:1 and not engaging , no eye contact 11/13/17 Patient found lying in her bed with a 1:1. Patient is mute making poor eye contact. Patient has not eaten since yesterday and refused her breakfast this morning. Patient presents depressed, mute, non compliant with medication. Group Spec/RT/OT/GUAMAN Present: DENIZ Lozano, Kade Fu, OT, DENIZ Little Group Spec/RT/OT/GUAMAN Input: 12/13/17 attends select groups and is appropriate but quiet at times is withdrawing 12/04/17 attends select groups but withdrawn a lot and more outside of her room 11/29/17 Pt. attends 50% of groups, pt. talks selectively 11/27/17 progess in participation during exercise group , plays basketball and came to [employer] but still seclusvie 11/22/17minimal progess in group activities , participates in basketball 11/20/17 dos not leave her room to attend any groups 11/08/17 does not attend any groups 11/13/17 Patient is seclusive and does not attend any groups. Lyudmila VelasquezW Dec 13, 2017 14:11
--- NOTE | 2017-12-13 14:49 | HHI.PYPN ---
Subjective Chief Complaint: Major depressive disorder, severe with psychotic features Remarks Patient is being transferred to my service. Chart reviewed. Patient seen with nurse Fernanda, patient discussed with nurse. Patient somewhat anxious with our initial visit, initially making very poor eye contact. Stating she's been depressed for many months. That she has suicidal ideation plus the intent to kill herself. She states that if offered she would take the suicide pill right now. 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 Since I also from [place] we are able to discuss locations [place] style food, etc. Patient acted quite positively to that with occasional eye contact occasional fairly genuine smile. We did discuss medications also I will review them and consider options. Also needed talked with patient's mother concerning this she is the guardian advocate. For now continue treatment no change Review of Systems Except as stated in HPI: all other systems reviewed are Neg Mental Status Examination Appearance: Disheveled Consciousness: Alert Orientation: Person, Place, Date/Time Motor Activity: Other (In bed) Speech: Unremarkable Language: Adequate Fund of Knowledge: Adequate Attention and Concentration: Adequate Memory: Unremarkable Mood: Other ("Fine") Affect: Flat Thought Process & Associations: Linear Thought Content: Appropriate Hallucination Type: None, Other Delusion Type: None Suicidal Ideation: Yes (intermittent) Suicidal Plan: No Suicidal Intention: No Homicidal Ideation: No Homicidal Plan: No Homicidal Intention: No Insight: Poor Judgment: Poor Results Vitals/IOs Vital Signs Date Time Temp Pulse Resp B/P (MAP) Pulse Ox O2 Delivery O2 Flow Rate FiO2 12/13/17 05:59 98.0 95 18 109/73 (85) 97 Intake and Output 12/13/17 12/13/17 12/14/17 08:00 16:00 00:00 Intake Total 480 ml Balance 480 ml Assessment & Plan Problem List: (1) Major depressive disorder, recurrent, severe with psychotic features ICD Codes: F33.3 - Major depressive disorder, recurrent, severe with psychotic symptoms Assessment & Plan Estimated LOS: days patient remains depressed suicidal though those of vagueness about any psychotic features at this time. Justification for Cont. Inpt. At this time patient with decompensated placed in the lower level of care Discharge Planning Need to meet with mother to discuss options related to treatment and placement issues Maurice Atwood MD Dec 13, 2017 14:49
[2017-12-13 18:05] VITALS: BP 126/85; PULSE 118; RESP 18; TEMP 98.5; O2SAT 100
[2017-12-14] MEDS: FREE WATER PO SCH ×6 (04:00→19:50)
[2017-12-14 05:09] VITALS: BP 111/59; PULSE 95; RESP 16; TEMP 98.3; O2SAT 98
[2017-12-14] MEDS: VENLAFAXINE HCL XR 75 MG CAP PO SCH (08:34)
[2017-12-14] MEDS: OLANZapine 2.5 MG TAB PO SCH ×2 (08:34→20:48)
[2017-12-14] MEDS: NICOTINE 21 MG/24 HR PATCH T-DERMAL SCH (09:00)
--- NOTE | 2017-12-14 13:59 | HHI.PYPN ---
Subjective Chief Complaint: Major depressive disorder, severe with psychotic features Remarks Patient seen today in her room with nurse Spencer, chart review, patient discussed with nurse. Patient calm pleasant making somewhat better eye contact than yesterday, she is somewhat more responsive verbally and somewhat freer today with a smile. She states the suicidality continues present but is less than yesterday. She does deny voices today. I did review patient's medications will discontinue the ciwa protocol and discontinue the free water. Patient is eating and drinking without problems. Review of Systems Except as stated in HPI: all other systems reviewed are Neg Mental Status Examination Appearance: Disheveled Consciousness: Alert Orientation: Person, Place, Date/Time Motor Activity: Other (In bed) Speech: Unremarkable Language: Adequate Fund of Knowledge: Adequate Attention and Concentration: Adequate Memory: Unremarkable Mood: Other ("Fine") Affect: Flat Thought Process & Associations: Linear Thought Content: Appropriate Hallucination Type: None, Other Delusion Type: None Suicidal Ideation: Yes (intermittent) Suicidal Plan: No Suicidal Intention: No Homicidal Ideation: No Homicidal Plan: No Homicidal Intention: No Insight: Poor Judgment: Poor Results Vitals/IOs Vital Signs Date Time Temp Pulse Resp B/P (MAP) Pulse Ox O2 Delivery O2 Flow Rate FiO2 12/14/17 05:09 98.3 95 16 111/59 (76) 98 Intake and Output 12/14/17 12/14/17 12/15/17 08:00 16:00 00:00 Output Total 1 ml Balance -1 ml Assessment & Plan Problem List: (1) Major depressive disorder, recurrent, severe with psychotic features ICD Codes: F33.3 - Major depressive disorder, recurrent, severe with psychotic symptoms Assessment & Plan Estimated LOS: days patient continues depressed and suicidal suicidality seems slightly softer. She is compliant with medications. See medication adjustments about Justification for Cont. Inpt. At this time patient decompensate and placed in the lower level of care Discharge Planning To be determined Maurice Atwood MD Dec 14, 2017 13:59
[2017-12-14 18:29] VITALS: BP 122/77; PULSE 117; RESP 16; TEMP 97.5; O2SAT 98
[2017-12-14 18:34] VITALS: BP 120/70; PULSE 117; RESP 18
[2017-12-14] MEDS: REMOVE OLD NICOTINE PATCH T-DERMAL SCH (20:49)
[2017-12-15] MEDS: FREE WATER PO SCH ×6 (04:00→20:00)
[2017-12-15 05:33] VITALS: BP 91/54; PULSE 90; RESP 16; TEMP 98.1; O2SAT 98
[2017-12-15] MEDS: OLANZapine 2.5 MG TAB PO SCH ×2 (08:32→21:32)
[2017-12-15] MEDS: VENLAFAXINE HCL XR 75 MG CAP PO SCH (08:32)
[2017-12-15] MEDS: NICOTINE 21 MG/24 HR PATCH T-DERMAL SCH (09:00)
--- NOTE | 2017-12-15 11:51 | HHI.PYPN ---
Subjective Chief Complaint: Major depressive disorder, severe with psychotic features Remarks Patient seen in [place] with nurse Spencer, patient on her way to lunch. Chart reviewed. Patient discussed with nurse. Patient continues calm cooperative with me but today is somewhat more distant with poor eye contact. She states the suicidality is present today has been is when she first came in. She denies voices or visions. She states she would take the suicide pill if offered. We are arranging to meet with patient's mother on Monday to discuss possible medication issues Review of Systems Except as stated in HPI: all other systems reviewed are Neg Mental Status Examination Appearance: Disheveled Consciousness: Alert Orientation: Person, Place, Date/Time Motor Activity: Other (In bed) Speech: Unremarkable Language: Adequate Fund of Knowledge: Adequate Attention and Concentration: Adequate Memory: Unremarkable Mood: Other ("Fine") Affect: Flat Thought Process & Associations: Linear Thought Content: Appropriate Hallucination Type: None, Other Delusion Type: None Suicidal Ideation: Yes (intermittent) Suicidal Plan: No Suicidal Intention: No Homicidal Ideation: No Homicidal Plan: No Homicidal Intention: No Insight: Poor Judgment: Poor Results Vitals/IOs Vital Signs Date Time Temp Pulse Resp B/P (MAP) Pulse Ox O2 Delivery O2 Flow Rate FiO2 12/15/17 05:33 98.1 90 16 91/54 (66) 98 Assessment & Plan Problem List: (1) Major depressive disorder, recurrent, severe with psychotic features ICD Codes: F33.3 - Major depressive disorder, recurrent, severe with psychotic symptoms Assessment & Plan Estimated LOS: days patient remains depressed suicidal with intent, would take the suicide pill, still showing marked decreased range intensity of her affect. For now continue treatment Justification for Cont. Inpt. At this time patient will decompensate placed in the lower level of care Discharge Planning Possible return home with mother Maurice Atwood MD Dec 15, 2017 11:51
[2017-12-15 18:00] VITALS: BP 133/60; PULSE 122; RESP 18; TEMP 97.9; O2SAT 100
[2017-12-15] MEDS: REMOVE OLD NICOTINE PATCH T-DERMAL SCH (21:00)
[2017-12-16] MEDS: FREE WATER PO SCH ×6 (04:00→20:00)
[2017-12-16 05:20] VITALS: BP 103/60; PULSE 89; RESP 17; TEMP 97.9; O2SAT 96
[2017-12-16] MEDS: NICOTINE 21 MG/24 HR PATCH T-DERMAL SCH (08:52)
[2017-12-16] MEDS: VENLAFAXINE HCL XR 75 MG CAP PO SCH (08:52)
[2017-12-16] MEDS: OLANZapine 2.5 MG TAB PO SCH ×2 (08:52→21:00)
--- NOTE | 2017-12-16 15:00 | HHI.PYPN ---
Subjective Chief Complaint: Major depressive disorder, severe with psychotic features Remarks Patient was seen and case discussed with nursing. She is eating and sleeping well. Per nursing she has not been talking about with me she is quite interactive. Describes her mood is "good." She continues to have fleeting suicidal thoughts with no intent or plan. Safety plan reviewed again. Denies auditory visual hallucinations. Behaving well on the unit, no outbursts. Compliant with medications Mental Status Examination Appearance: Disheveled Consciousness: Alert Orientation: Person, Place, Date/Time Motor Activity: Other (In bed) Speech: Unremarkable Language: Adequate Fund of Knowledge: Adequate Attention and Concentration: Adequate Memory: Unremarkable Mood: Other ("Fine") Affect: Flat Thought Process & Associations: Linear Thought Content: Appropriate Hallucination Type: None, Other Delusion Type: None Suicidal Ideation: Yes (intermittent) Suicidal Plan: No Suicidal Intention: No Homicidal Ideation: No Homicidal Plan: No Homicidal Intention: No Insight: Poor Judgment: Poor Results Vitals/IOs Vital Signs Date Time Temp Pulse Resp B/P (MAP) Pulse Ox O2 Delivery O2 Flow Rate FiO2 12/16/17 05:20 97.9 89 17 103/60 (74) 96 Intake and Output 12/16/17 12/16/17 12/17/17 08:00 16:00 00:00 Intake Total 1100 ml Balance 1100 ml Assessment & Plan Problem List: (1) Major depressive disorder, recurrent, severe with psychotic features ICD Codes: F33.3 - Major depressive disorder, recurrent, severe with psychotic symptoms Assessment & Plan Continue current treatment plan Justification for Cont. Inpt. Patient will decompensate in a less restrictive setting Edmund Holland DO Dec 16, 2017 15:00
[2017-12-16 19:28] VITALS: BP 116/56; PULSE 111; RESP 16; TEMP 98.9; O2SAT 98
[2017-12-16] MEDS: REMOVE OLD NICOTINE PATCH T-DERMAL SCH (21:00)
[2017-12-17] MEDS: FREE WATER PO SCH ×6 (04:00→20:00)
[2017-12-17 06:13] VITALS: BP 108/67; PULSE 86; RESP 16; TEMP 98.9; O2SAT 97
[2017-12-17] MEDS: NICOTINE 21 MG/24 HR PATCH T-DERMAL SCH (09:00)
--- NOTE | 2017-12-17 09:30 | HHI.PYPN ---
Subjective Chief Complaint: Major depressive disorder, severe with psychotic features Remarks Patient was seen and case discussed with nursing. Patient interviewed in bed. As of this morning patient denies suicidal ideation. She does remain blunted. Had a phone call with the mother this morning. Compliant with medications and behaving well on the unit Mental Status Examination Appearance: Disheveled Consciousness: Alert Orientation: Person, Place, Date/Time Motor Activity: Other (In bed) Speech: Unremarkable Language: Adequate Fund of Knowledge: Adequate Attention and Concentration: Adequate Memory: Unremarkable Mood: Other ("Fine") Affect: Flat Thought Process & Associations: Linear Thought Content: Appropriate Hallucination Type: None, Other Delusion Type: None Suicidal Ideation: No Suicidal Plan: No Suicidal Intention: No Homicidal Ideation: No Homicidal Plan: No Homicidal Intention: No Insight: Poor Judgment: Poor Results Vitals/IOs Vital Signs Date Time Temp Pulse Resp B/P (MAP) Pulse Ox O2 Delivery O2 Flow Rate FiO2 12/17/17 06:13 98.9 86 16 108/67 (81) 97 Intake and Output 12/17/17 12/17/17 12/18/17 08:00 16:00 00:00 Intake Total 550 ml 480 ml Balance 550 ml 480 ml Assessment & Plan Problem List: (1) Major depressive disorder, recurrent, severe with psychotic features ICD Codes: F33.3 - Major depressive disorder, recurrent, severe with psychotic symptoms Assessment & Plan Continue current treatment plan Justification for Cont. Inpt. Patient will decompensate in a less restrictive setting Edmund Holland DO Dec 17, 2017 09:30
[2017-12-17] MEDS: VENLAFAXINE HCL XR 75 MG CAP PO SCH (10:28)
[2017-12-17] MEDS: OLANZapine 2.5 MG TAB PO SCH ×2 (10:28→21:00)
[2017-12-17 18:08] VITALS: BP 116/68; PULSE 84; RESP 16; TEMP 98.2; O2SAT 97
[2017-12-17] MEDS: REMOVE OLD NICOTINE PATCH T-DERMAL SCH (21:00)
[2017-12-18 00:39] LABS: AUTOMATED NEUTROPHIL # 6.4 TH/MM3 (1.8-7.7); BASOPHIL # 0.1 TH/MM3 (0-0.2); BASOPHIL % 0.6 % (0.0-2.0); EOSINOPHIL # 0.3 TH/MM3 (0-0.4); HEMOGLOBIN 10.3 GM/DL (11.6-15.3); LYMPH % 33.7 % (9.0-44.0); LYMPHOCYTE # 3.9 TH/MM3 (1.0-4.8); MEAN CELL VOLUME 75.3 FL (80.0-100.0); MEAN CORPUSCULAR HGB CONC 33.2 % (32.0-36.0); MEAN PLATELET VOLUME 7.1 FL (7.0-11.0); MONO % 7.5 % (0.0-8.0); MONOCYTE # 0.9 TH/MM3 (0-0.9); NEUT % 55.2 % (16.0-70.0); PLATELET COUNT 371 TH/MM3 (150-450); RED BLOOD COUNT 4.11 MIL/MM3 (4.00-5.30); WHITE BLOOD COUNT 11.6 TH/MM3 (4.0-11.0)
[2017-12-18 00:52] LABS: ALT (GPT) 26 U/L (10-53); AST (GOT) 11 U/L (15-37); BICARBONATE 28.9 MEQ/L (21.0-32.0); BLOOD UREA NITROGEN 13 MG/DL (7-18); CALCIUM 8.3 MG/DL (8.5-10.1); CHLORIDE 105 MEQ/L (98-107); CREATININE 0.64 MG/DL (0.50-1.00); GLOMERULAR FILTRATION RATE 112 ML/MIN (>89); GLUCOSE,RANDOM 109 MG/DL (74-106); SODIUM (NA) 141 MEQ/L (136-145)
[2017-12-18 00:54] LABS: ALKALINE PHOSPHATASE 91 U/L (45-117); TOTAL BILIRUBIN ADULT 0.2 MG/DL (0.2-1.0); TOTAL PROTEIN 6.5 GM/DL (6.4-8.2)
[2017-12-18] MEDS: FREE WATER PO SCH ×3 (04:00→08:00)
[2017-12-18 06:36] VITALS: BP 101/56; PULSE 87; RESP 17; TEMP 97.6; O2SAT 98
[2017-12-18] MEDS: VENLAFAXINE HCL XR 75 MG CAP PO SCH (09:00)
[2017-12-18] MEDS: OLANZapine 2.5 MG TAB PO SCH (09:00)
[2017-12-18] MEDS: NICOTINE 21 MG/24 HR PATCH T-DERMAL SCH (09:00)
[2017-12-18] MEDS ORDERED: VENL75XR PO (10:01)
[2017-12-18] MEDS ORDERED: OLAN2.5T7 PO (10:01)
--- NOTE | 2017-12-18 10:15 | HHI.DS ---
Psychiatry Discharge Summary Inpatient Psychiatric care?: Yes Advance Directive: No Reason Not Provided: secluded and guarded Mental Health AdvanceDirective: No Health Care Proxy: No Admission Admission Date Nov 05, 2017 at 13:35 Admission Diagnosis: (1) Major depressive disorder, recurrent, severe with psychotic features ICD Code: F33.3 - Major depressive disorder, recurrent, severe with psychotic symptoms Brief History Patient is a 27-year-old woman, single, no children, domicile with mother, a college, with an unclear past psychiatric history, unknown previous hospitalizations, suicide attempts or self-injurious behavior, with substance use history significant for alcohol use as per collateral information, no significant past medical history, who was brought in under [place] [facility] after patient barricaded herself in a hotel room bathroom, was found to have to written notes on suicidal table, which patient refused to exit the bathroom and was found holding a knife and was tased she was admitted to the inpatient psychiatry unit for further evaluation and management. As per chart patient in the ED was noted to refuse to cooperate with interview but was noted to have a self-inflicted knife wound to the left side of her neck requiring sutures. Patient was found lying on hospital bed superficially cooperative, guarded. Patient was noted to be alert and oriented 3, was able to state that she came by ambulance but also mentioned that patient came by court order, specifically an ex-partake that was issued. Significant past medical, psychiatric or substance use history patient continues to state "I don't know" and refusing to elaborate or engage further in interview. Patient did admit to feeling depressed, with decreased appetite and energy with no difficulty concentration but denied any perceptual disturbances or delusions at this time. Patient continued to have limited engagement in interview and answered every question with "I don't know". Family psychiatric history: Unable to assess due to limited cooperation by patient during interview Psychiatric history:Unable to assess due to limited cooperation by patient during interview Substance use history:Unable to assess due to limited cooperation by patient during interview although as per collateral information patient had been drinking increasingly alcohol recently. Past medical history:Unable to assess due to limited cooperation by patient during interview Allergies: NKDA as per chart Social history: Single, no children, not currently employed, the domicile with mother Collateral contact: (Mother)[phone] Patient was seen today for psychiatric evaluation of a second opinion. I reviewed documentation. I discussed the case with nurse in charge. The patient was not cooperative, selectively mute, she did not answer anyone of my questions. I reassured the patient and let her know very clearly that she is in the psychiatric unit to be taking care to be help and wants she feels that she wants to talk we are open to listening to her help her. Presently the patient has been taking her medications, she has no reported any side effects. She also has been eating, sometimes she has been verbal very minimally. Tobacco Use In Past 30 Days: No Tobacco Past 30 Days Alcohol Use: Never Hospital Course Patient's hospital course was significant for persistent depression with suicidal ideation intent. She also stated that she would be willing to take the "suicide pill" if offered to her. She was overall compliant with the medications. However last week it appears the patient stockpile some of her Effexor and Zoloft for about 3-4 days and took them all about 4 days ago. I have been following patient for about a week, she being recently transferred to my service. She did verify the suicidality with me in each visit. She was also calm and at times somewhat pleasant when sharing her experiences on living in [place]. It appears coincidentally with this patient's mother has making plans to have her daughter transferred to a more therapeutic type facility. List facility called "[facility]" associated with a [facility]. Mother states there has been a commitment by the facility to accept this patient today. We did meet today with patient, patient' s mother, and counselor Flori. We discussed patient's history course in our hospital, the continued suicidality and depression. It appears patient is willing to go to that of the facility. Is able to contract with her mother to do no harm. Her mother is planning on transporting patient to that facility on her own. I did advise mother that there could be some risks with this. Mother states she is willing to accept this and take full responsibility for the safety of herself and her daughter during this transport. Daughter is also able to contract to do no harm to cooperate during the transport. Thus patient will be discharged this morning to her mother. Mother to take full responsibility for transferring patient to the "[facility] Facility out [facility] for further inpatient care and attention Results Blood Pressure 101 / 56 Vital Signs Date Time Temp Pulse Resp B/P (MAP) Pulse Ox O2 Delivery O2 Flow Rate FiO2 12/18/17 06:36 97.6 87 17 101/56 (71) 98 Laboratory Tests Test 12/18/17 00:25 White Blood Count 11.6 TH/MM3 (4.0-11.0) Hemoglobin 10.3 GM/DL (11.6-15.3) Hematocrit 31.0 % (35.0-46.0) Mean Corpuscular Volume 75.3 FL (80.0-100.0) Mean Corpuscular Hemoglobin 25.0 PG (27.0-34.0) Random Glucose 109 MG/DL (74-106) Albumin 3.0 GM/DL (3.4-5.0) Calcium Level 8.3 MG/DL (8.5-10.1) Aspartate Amino Transf (AST/SGOT) 11 U/L (15-37) Laboratory Results Test 11/06/17 05:43 Cholesterol Level 111 MG/DL (120-200) HDL Cholesterol 32.7 MG/DL (40.0-60.0) Hemoglobin A1c 5.2 % (4.3-6.0) LDL Cholesterol 64 MG/DL (0-99) Triglycerides Level 72 MG/DL (42-150) Summary of Procedures None done Imaging Last Impressions Head CT 11/11/17 0000 Signed Impressions: Service Date/Time: Sunday, November 12, 2017 00:12 - CONCLUSION: 1. No acute intracranial abnormalities. Elmer Huff MD Pending results at discharge: Yes (Zyprexa and Effexor blood levels) Medications # of Antipsychotic meds at D/C: 1 Approp Antipsych med options 1 - Minimum of three failed multiple trials of monotherapy. 2 - Documented plan to taper to monotherapy due to previous use of multiple meds OR cross-taper in progress at D/C. 3 - Documentation of augmentation of Clozapine. 4 - Justification other than those listed in allowable values 1-3, document here : Discharge Discharge Date: Dec 18, 2017 Discharge Diagnosis: (1) Major depressive disorder, recurrent, severe with psychotic features Diagnosis: Principal ICD Code: F33.3 - Major depressive disorder, recurrent, severe with psychotic symptoms Pt Condition on Discharge: Stable Discharge Disposition: Discharge Home Discharge Instructions Diet Instructions: As Tolerated, No Restrictions Activities you can perform: Regular-No Restrictions Scheduled Appointment: "[facility]" facility ([facility] of [facility]" Discharge Time > 30 minutes Mental Status Examination Appearance: Disheveled Consciousness: Alert Orientation: Person, Place, Date/Time Motor Activity: Other (In bed) Speech: Unremarkable Language: Adequate Fund of Knowledge: Adequate Attention and Concentration: Adequate Memory: Unremarkable Mood: Other ("Fine") Affect: Flat Thought Process & Associations: Linear Thought Content: Appropriate Hallucination Type: None, Other Delusion Type: None Suicidal Ideation: No Suicidal Plan: No Suicidal Intention: No Homicidal Ideation: No Homicidal Plan: No Homicidal Intention: No Insight: Poor Judgment: Poor Discharge/Advance Care Plan Health Problems: (1) Major depressive disorder, recurrent, severe with psychotic features Goals to promote your health * To prevent worsening of your condition and complications * To maintain your health at the optimal level Directions to meet your goals Take your medications as prescribed Follow your dietary instruction Follow activity as directed Keep your appointments as scheduled Take your immunizations and boosters as scheduled If your symptoms worsen call your PCP, if no PCP go to Urgent Care Center or Emergency Room For 24/04 questions related to your inpatient stay or results of tests pending at discharge, please contact Dr. Maurice Atwood at Smoking is Dangerous to Your Health. Avoid second hand smoking Maurice Atwood MD Dec 18, 2017 10:15
== END 2017-12-18 11:05 | disposition home or self-care (01) | DRG 885 ==
LOC: NEPC 03:26 → NEDA 11-05 13:35 → H4EA 11-05 15:04 → H260 11-07 22:28
PROVIDERS: ADMIT Psychiatry & Neurology Psychiatry; ATTEND Psychiatry & Neurology Psychiatry
PROC: 0HQ4XZZ Repair Neck Skin, External Approach (ICD-10-PCS; principal; 2017-11-04)
PROC: 0HQ7XZZ Repair Abdomen Skin, External Approach (ICD-10-PCS; 2017-11-04)
DX: F33.3 Major depressive disorder, recurrent, severe with psychotic symptoms (principal); S11.81XA Laceration without foreign body of other specified part of neck, initial encounter; E87.6 Hypokalemia; Y93.89 Activity, other specified; Y92.9 Unspecified place or not applicable; S31.119A Laceration without foreign body of abdominal wall, unspecified quadrant without penetration into peritoneal cavity, initial encounter; X78.1XXA Intentional self-harm by knife, initial encounter; F94.0 Selective mutism
CPT/HCPCS: 70450; 80048; 80053; 80061; 80307; 82550; 83036; 83735; 84100; 84436; 84439; 84443; 84480; 84481; 84484; 84703; 85025; 85027; 90714; 93005; 96372; J1650; J2060